=== PATIENT | female | born 1990 | race Caucasian/White ===

== ENCOUNTER 2017-12-08 09:34 | Emergency (ER) | payer SELFPAY ==
[2017-12-08] MEDS ORDERED: NA CHLORIDE 0.9% 1,000 ML ONE (10:24)
[2017-12-08] MEDS ORDERED: ONDANSETRON 4 MG/2 ML VIAL ONE (10:24)
[2017-12-08 10:36] LABS: Urine Blood NEGATIVE (NEG); Urine Glucose NEGATIVE (NEG); Urine Protein TRACE (NEG); Urine Specific Gravity >1.030 (1.005-1.030); Urine pH 5.5 (5.0-7.0)
[2017-12-08 10:39] LABS: ALT/SGPT 27 U/L (12-78); AST/SGOT 18 U/L (15-37); Albumin 3.6 g/dL (3.4-5.0); Alkaline Phosphatase 114 U/L (45-117); Amylase Level 48 U/L (25-115); BUN Blood Urea Nitrogen 9 mg/dL (7-18); Bicarbonate 28 mmol/L (21-32); Bilirubin Direct < 0.1 mg/dL (0-0.2); Bilirubin Total 0.3 mg/dL (0.2-1.0); Glucose Level 102 mg/dL (74-106); Lipase 162 U/L (73-393); Potassium 3.7 mmol/L (3.5-5.1); Protein, Total 8.1 g/dL (6.4-8.2); Sodium Level 136 mmol/L (136-145)
[2017-12-08 10:43] LABS: Absolute Lymphocytes (CBC) 2.5 K/uL (0.7-4.9); Absolute Monocytes 0.4 K/uL (0.1-1.3); Absolute Neutrophil 6.4 K/uL (1.8-8.0); Basophils % 0.1 % (0-1.3); Hematocrit 46.5 % (36.0-45.0); Lymphocytes % 22.5 % (15.3-44.8); MCH 29.8 pg (27.0-35.0); MCV 90.3 fL (80-100); MPV 7.9 fL (7.6-11.3); Monocytes % 3.8 % (3.3-12.3); RBC Red Blood Cell Count 5.15 M/uL (3.86-4.86)
--- NOTE | 2017-12-08 11:20 | RAD REPORT ---
EXAM DESCRIPTION: CT - Abdomen Pelvis W Contrast - 12/08/2017 11:08 am CLINICAL HISTORY: Abdominal pain, nausea and vomiting, history of hepatitis COMPARISON: None. TECHNIQUE: Biphasic, helical CT imaging of the abdomen and pelvis was performed following 100 ml non -ionic IV contrast. No oral contrast was given. All CT scans are performed using dose optimization technique as appropriate and may include automated exposure control or mA/KV adjustment according to patient size. FINDINGS: No suspicious findings in the lung bases. The liver, spleen, and pancreas show no suspicious findings. Gallbladder and biliary tree are also wi thout suspicious finding. Gallstones and sludge can be occult on CT imaging. Symmetric renal function is seen with no hydronephrosis or suspicious renal mass. No pyelonephritis. No adrenal abnormalities. Urinary bladder is contracted limiting assessment. Uterus and ovaries show no suspicious findings. Small cyst noted in the right ovary. No gastric dilatation or gastric wall thickening. Stomach is mostly decompressed. Multiple nondilated fluid-filled small bowel loops are present. San are mildly prominent. San throughout the colon a re mildly prominent. No one focal area of large or small bowel mass or luminal narrowing. Fluid is p resent in the appendix. The appendix does not appear to be dilated and a primary appendix process is not suspected. No free air, free fluid or inflammatory stranding. No hernia, mass or bulky lymphadenopathy. No suspicious bony findings. IMPRESSION: No obstruction, free air or surgically emergent finding. Nonspecific enteritis pattern involving small bowel and colon. Acute appendicitis is not suspected.
--- NOTE | 2017-12-08 11:26 | ER ---
Nurse's Notes [facility] Name: Mya Newman Age: 27 yrs Sex: Female : 1990 Arrival Date: 12/08/2017 Time: 09:36 Bed 15 Private MD: None, None Diagnosis: Diarrhea, unspecified;Generalized abdominal pain;Nausea and vomiting Presentation: 12/08 09:51 Presenting complaint: Patient states: Reports N/V/D for 2 weeks. Transition of care: aj patient was not received from another setting of care. Onset of symptoms was December 08, 2017. Risk Assessment: Do you want to hurt yourself or someone else? Patient reports no desire to harm self or others. Initial Sepsis Screen: Does the patient meet any 2 criteria? HR > 90 bpm. No. Patient's initial sepsis screen is negative. Does the patient have a suspected source of infection? No. Patient's initial sepsis screen is negative. Care prior to arrival: None. 09:51 Method Of Arrival: Ambulatory 09:51 Acuity: BECKI 3 Triage Assessment: 09:52 General: Appears in no apparent distress. uncomfortable, Behavior is calm, cooperative, aj appropriate for age. Pain: Complains of pain in left upper quadrant. Neuro: Level of Consciousness is awake, alert, obeys commands, Oriented to person, place, time, situation, Appropriate for age. Respiratory: Airway is patent Respiratory effort is even, unlabored, Respiratory pattern is regular, symmetrical. GI: Abdomen is flat, Reports upper abdominal pain, diarrhea, nausea, vomiting. Derm: Skin is intact, is healthy with good turgor, Skin is pink, warm \T\ dry. normal. 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 - Social history:: Smoking status: Patient uses tobacco products, smokes one pack cigarettes per day. Patient uses IV drugs, amphetamines. - Ebola Screening: : Patient negative for fever greater than or equal to 101.5 degrees Fahrenheit, and additional compatible Ebola Virus Disease symptoms Patient denies exposure to infectious person Patient denies travel to an Ebola-affected area in the 21 days before illness onset No symptoms or risks identified at this time. Screenin:17 Abuse screen: Denies threats or abuse. Nutritional screening: No deficits noted. la1 Tuberculosis screening: No symptoms or risk factors identified. Fall Risk None identified. Assessment: 10:17 General: Appears uncomfortable, Behavior is calm, cooperative. Pain: Complains of pain la1 in left upper quadrant, right lower quadrant and left lower quadrant. Neuro: Level of Consciousness is awake, alert, obeys commands, Oriented to person, place, time, situation. Cardiovascular: Patient's skin is warm and dry. Respiratory: Airway is patent Respiratory effort is even, unlabored, Respiratory pattern is regular, symmetrical, Breath sounds are clear bilaterally. GI: Abdomen is round non-distended, Bowel sounds present X 4 quads. Abd is soft and non tender X 4 quads. Reports diarrhea, nausea, vomiting. : No signs and/or symptoms were reported regarding the genitourinary system. Vital Signs: 09:52 BP 134 / 109; Pulse 127; Resp 20; Temp 97.9; Pulse Ox 99% on R/A; Weight 58.97 kg; aj Height 5 ft. 2 in. (157.48 cm) (R); 11:15 BP 123 / 83; Pulse 105; Resp 17; Pulse Ox 100% on R/A; la1 09:52 Body Mass Index 23.78 (58.97 kg, 157.48 cm) aj ED Course: 09:36 Patient arrived in ED. mr 09:37 None, None is Private Physician. mr 09:49 Roxie Brice FNP-C is PHCP. kb 09:49 Demario Floyd MD is Attending Physician. kb 09:50 Adin Doe, KRISTOPHER is Primary Nurse. la1 09:51 Triage completed. aj 09:52 Arm band placed on left wrist. Patient placed in an exam room. aj 10:18 Bed in low position. Call light in reach. la1 10:18 No provider procedures requiring assistance completed. Inserted Accessed peripheral la1 vein via ultrasound, utilizing dynamic ultrasound technique using 18G Sureflo IV catheter. 11:[address] via wheelchair. cw1 11:06 CT completed. Patient moved back from CT. cw1 11:08 CT Abd/Pelvis - W/Contrast In Process Unspecified. EDMS 11:26 IV discontinued, intact, bleeding controlled, No redness/swelling at site. Pressure la1 dressing applied. Administered Medications: 10:23 Drug: Zofran 4 mg Route: IVP; Site: right wrist; la1 10:44 Follow up: Response: No adverse reaction; Nausea is decreased la1 10:24 Drug: NS 0.9% 1000 ml Route: IV; Rate: 1000 ml; Site: right wrist; la1 10:54 Follow up: IV Status: Completed infusion la1 Outcome: 11:25 Discharge ordered by . gretchen 11:32 Discharged to home ambulatory. la1 11:32 Condition: stable 11:32 Discharge instructions given to patient, Instructed on discharge instructions, follow up and referral plans. medication usage, Demonstrated understanding of instructions, follow-up care, medications, Prescriptions given X 2. 11:32 Patient left the ED. la1 Signatures: Dispatcher [employer] EDMS Roxie Brice, HOT DIE PRESS OPERATOR-C HOT DIE PRESS OPERATOR-Taylor Haynes, RN Carmen Norwood, Lilian cw1 Adin Doe, KRISTOPHER RN la1
--- NOTE | 2017-12-08 11:26 | EDPHYS ---
Physician Documentation [facility] Name: Mya Newman Age: 27 yrs Sex: Female : 1990 Arrival Date: 12/08/2017 Time: 09:36 Bed 15 Private MD: None, None ED Physician Demario Floyd HPI: 12/08 09:59 This 27 yrs old Female presents to ER via Ambulatory with complaints of kb Abdominal Pain. 09:59 The patient presents with abdominal pain that is diffuse. Onset: The symptoms/episode kb began/occurred 2 week(s) ago. The symptoms do not radiate. Associated signs and symptoms: Pertinent positives: nausea, vomiting, and diarrhea. The symptoms are described as constant. Modifying factors: The symptoms are alleviated by nothing, the symptoms are aggravated by pressure. Severity of pain: At its worst the pain was moderate in the emergency department the pain is unchanged. The patient has not experienced similar symptoms in the past. The patient has not recently seen a physician. Pt reports n/v/d and abd pain for 2 weeks. States pain is more on the left side. STates "My boyfriend made me worried that I have hep A or B, we both have C.". 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 - Social history:: Smoking status: Patient uses tobacco products, smokes one pack cigarettes per day. Patient uses IV drugs, amphetamines. - Ebola Screening: : Patient negative for fever greater than or equal to 101.5 degrees Fahrenheit, and additional compatible Ebola Virus Disease symptoms Patient denies exposure to infectious person Patient denies travel to an Ebola-affected area in the 21 days before illness onset No symptoms or risks identified at this time. ROS: 09:59 Constitutional: Negative for fever, chills, and weight loss, Cardiovascular: Negative kb for chest pain, palpitations, and edema, Respiratory: Negative for shortness of breath, cough, wheezing, and pleuritic chest pain, Back: Negative for injury and pain, : Negative for injury, bleeding, discharge, and swelling, MS/Extremity: Negative for injury and deformity, Skin: Negative for injury, rash, and discoloration, Neuro: Negative for headache, weakness, numbness, tingling, and seizure. 09:59 Abdomen/GI: Positive for abdominal pain, nausea, vomiting, and diarrhea, Negative for constipation, abdominal cramps, abdominal distension, anorexia. Exam: 09:59 Constitutional: This is a well developed, well nourished patient who is awake, alert, kb and in no acute distress. Head/Face: Normocephalic, atraumatic. Chest/axilla: Normal chest wall appearance and motion. Nontender with no deformity. No lesions are appreciated. Cardiovascular: Regular rate and rhythm with a normal S1 and S2. No gallops, murmurs, or rubs. Normal PMI, no JVD. No pulse deficits. Respiratory: Lungs have equal breath sounds bilaterally, clear to auscultation and percussion. No rales, rhonchi or wheezes noted. No increased work of breathing, no retractions or nasal flaring. Skin: Warm, dry with normal turgor. Normal color with no rashes, no lesions, and no evidence of cellulitis. MS/ Extremity: Pulses equal, no cyanosis. Neurovascular intact. Full, normal range of motion. Neuro: Awake and alert, GCS 15, oriented to person, place, time, and situation. Cranial nerves II-XII grossly intact. Motor strength 5/5 in all extremities. Sensory grossly intact. Cerebellar exam normal. Normal gait. 09:59 Abdomen/GI: Inspection: abdomen appears normal, Bowel sounds: normal, in all quadrants, Palpation: soft, in all quadrants, moderate abdominal tenderness, in all quadrants. Vital Signs: 09:52 BP 134 / 109; Pulse 127; Resp 20; Temp 97.9; Pulse Ox 99% on R/A; Weight 58.97 kg; aj Height 5 ft. 2 in. (157.48 cm) (R); 11:15 BP 123 / 83; Pulse 105; Resp 17; Pulse Ox 100% on R/A; la1 09:52 Body Mass Index 23.78 (58.97 kg, 157.48 cm) aj MDM: 09:49 Patient medically screened. kb 10:01 Data reviewed: vital signs, nurses notes. Data interpreted: Pulse oximetry: on room air kb is 99 %. Interpretation: normal. 11:24 Counseling: I had a detailed discussion with the patient and/or guardian regarding: the kb historical points, exam findings, and any diagnostic results supporting the discharge/admit diagnosis, lab results, radiology results, the need for outpatient follow up, a family practitioner, to return to the emergency department if symptoms worsen or persist or if there are any questions or concerns that arise at home. 12/08 09:52 Order name: Amylase, Serum; Complete Time: 10:40 kb 12/08 09:52 Order name: Basic Metabolic Panel; Complete Time: 10:40 kb 12/08 09:52 Order name: CBC with Diff kb 12/08 09:52 Order name: Hepatic Function; Complete Time: 10:40 kb 12/08 09:52 Order name: Lipase; Complete Time: 10:40 kb 12/08 10:22 Order name: Urine Dipstick--Ancillary (enter results); Complete Time: 10:40 bd 12/08 09:52 Order name: Urine Test (obtain specimen); Complete Time: 10:16 kb 12/08 09:52 Order name: IV Saline Lock; Complete Time: 10:16 kb 12/08 09:52 Order name: Labs collected and sent; Complete Time: 10:16 kb 12/08 10:22 Order name: Urine --Ancillary (enter results); Complete Time: 10:40 bd 12/08 10:40 Order name: CT Abd/Pelvis - W/Contrast; Complete Time: 11:24 kb 12/08 10:45 Order name: Manual Differential EDMS 12/08 09:52 Order name: Urine Dipstick-Ancillary (obtain specimen); Complete Time: 10:16 kb Administered Medications: 10:23 Drug: Zofran 4 mg Route: IVP; Site: right wrist; la1 10:44 Follow up: Response: No adverse reaction; Nausea is decreased la1 10:24 Drug: NS 0.9% 1000 ml Route: IV; Rate: 1000 ml; Site: right wrist; la1 10:54 Follow up: IV Status: Completed infusion la1 Disposition: 12/09 09:15 Co-signature as Attending Physician, Demario Floyd MD I agree with the assessment and gary plan of care. Disposition: 12/08/17 11:25 Discharged to Home. Impression: Diarrhea, unspecified, Generalized abdominal pain, Nausea and vomiting. - Condition is Stable. - Discharge Instructions: Food Choices to Help Relieve Diarrhea, Adult, Viral Gastroenteritis, Adult, [id number], Nausea and Vomiting, Adult, [id number]. - Prescriptions for Bentyl 20 mg Oral Tablet - take 1 tablet by ORAL route every 6 hours As needed; 20 tablet. Zofran 4 mg Oral Tablet - take 1 tablet by ORAL route every 6 hours As needed; 20 tablet. - Medication Reconciliation Form, Thank You Letter, Antibiotic Education, Prescription Opioid Use form. - Follow up: Emergency Department; When: As needed; Reason: Worsening of condition. Follow up: Private Physician; When: 2 - 3 days; Reason: Recheck today's complaints, Continuance of care, Re-evaluation by your physician. Signatures: Dispatcher [employer] EDMS Roxie Brice, MICAELA ROLDAN-Taylor Haynes RN RN Demario Caputo MD MD cha Attema, Lee, RN RN la1 Corrections: (The following items were deleted from the chart) 12/08 11:32 11:25 12/08/2017 11:25 Discharged to Home. Impression: Diarrhea, unspecified; la1 Generalized abdominal pain; Nausea and vomiting. Condition is Stable. Forms are Medication Reconciliation Form, Thank You Letter, Antibiotic Education, Prescription Opioid Use. Follow up: Emergency Department; When: As needed; Reason: Worsening of condition. Follow up: Private Physician; When: 2 - 3 days; Reason: Recheck today's complaints, Continuance of care, Re-evaluation by your physician. kb
[2017-12-08 11:52] LABS: Blood Morphology Comment NOT SEEN (NOT SEEN); Platelet Estimate ADEQ
== END 2017-12-08 11:32 | disposition home or self-care (01) ==
LOC: ER 09:34
DX: R10.84 Generalized abdominal pain (principal); R19.7 Diarrhea, unspecified; R11.2 Nausea with vomiting, unspecified; Z88.6 Allergy status to analgesic agent; Z88.1 Allergy status to other antibiotic agents; B19.20 Unspecified viral hepatitis C without hepatic coma; F17.210 Nicotine dependence, cigarettes, uncomplicated
CPT/HCPCS: 36415; 74177; 80048; 80076; 81003; 81025; 82150; 83690; 85025; 96374; 99284; J2405; J7030; Q9967

== ENCOUNTER 2018-09-28 07:22 | Emergency (ER) | payer SELFPAY ==
--- NOTE | 2018-09-28 08:00 | ER ---
[facility] Name: Mya Newman Age: 28 yrs Sex: Female : 1990 Arrival Date: 09/28/2018 Time: 07:23 Bed 16 Private MD: Diagnosis: Pain in left hand Presentation: 09/28 07:23 Presenting complaint: EMS states: pt reports shooting up meth 2 days ago and now she is tw2 having pain but doesn't know if she fell or what, [place], allergic to amoxicillin and tylenol, vs stable. Transition of care: patient was not received from another setting of care. Onset of symptoms was September 28, 2018. Risk Assessment: Do you want to hurt yourself or someone else? Patient reports no desire to harm self or others. Initial Sepsis Screen: Does the patient meet any 2 criteria? No. Patient's initial sepsis screen is negative. Does the patient have a suspected source of infection? No. Patient's initial sepsis screen is negative. Care prior to arrival: None. 07:23 Method Of Arrival: EMS: [facility] tw2 07:23 Acuity: BECKI 4 tw2 Triage Assessment: 07:25 General: Appears in no apparent distress. unkempt, Behavior is calm, cooperative, tw2 appropriate for age. Pain: Complains of pain in left hand. EENT: No signs and/or symptoms were reported regarding the EENT system. Neuro: Level of Consciousness is awake, alert, obeys commands, Oriented to person, place, time, situation. Cardiovascular: Patient's skin is warm and dry. Respiratory: Airway is patent Respiratory effort is even, unlabored, Respiratory pattern is regular, symmetrical. GI: No signs and/or symptoms were reported involving the gastrointestinal system. : No signs and/or symptoms were reported regarding the genitourinary system. Derm: No signs and/or symptoms reported regarding the dermatologic system. Musculoskeletal: Circulation, motion, and sensation intact. Range of motion: intact in all extremities. 07:26 General: Appears in no apparent distress. comfortable, Behavior is calm, cooperative. em Pain: Complains of pain in left hand. 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 tw2 Historical: - Allergies: 07:26 Amoxicillin; em 07:26 Tylenol; em - Home Meds: 07:26 None [Active]; em - PMHx: 07:26 Hepatitis; Anemia; em - PSHx: 07:26 Tonsillectomy; em - Immunization history:: Last tetanus immunization: up to date. - Social history:: Smoking status: Patient uses tobacco products, smokes one-half pack cigarettes per day. - Ebola Screening: : Patient negative for fever greater than or equal to 101.5 degrees Fahrenheit, and additional compatible Ebola Virus Disease symptoms Patient denies exposure to infectious person Patient denies travel to an Ebola-affected area in the 21 days before illness onset No symptoms or risks identified at this time. Screenin: Abuse screen: Denies threats or abuse. Nutritional screening: No deficits noted. tw2 Tuberculosis screening: No symptoms or risk factors identified. Fall Risk None identified. Assessment: :27 Reassessment: see triage assessment. tw2 08:08 Reassessment: Patient appears in no apparent distress at this time. No changes from tw2 previously documented assessment. Patient and/or family updated on plan of care and expected duration. Pain level reassessed. Vital Signs: 07:26 BP 120 / 72; Pulse 105; Resp 18; Temp 98.7; Pulse Ox 100% on R/A; Weight 56.7 kg; em Height 5 ft. 2 in. (157.48 cm); Pain 8/10; 07:26 Body Mass Index 22.86 (56.70 kg, 157.48 cm) em ED Course: 07:23 Patient arrived in ED. tw2 07:23 [facility]C [facility] kb 07:23 Diego Ambriz MD is Attending Physician. kb 07:23 Bed in low position. Call light in reach. tw2 07:25 Triage completed. tw2 07:25 Arm band placed on. tw2 07:49 Hand Left 3 View XRAY In Process Unspecified. EDMS 08:06 Tia Teran, KRISTOPHER is Primary Nurse. tw2 08:07 No provider procedures requiring assistance completed. Patient did not have IV access tw2 during this emergency room visit. Dami wrap to left wrist Sling applied to left arm. Administered Medications: No medications were administered Outcome: 07:59 Discharge ordered by . gretchen 08:07 Discharged to home ambulatory. tw2 08:07 Condition: stable 08:07 Discharge instructions given to patient, Instructed on discharge instructions, follow up and referral plans. dami wrap and CMS checks Demonstrated understanding of instructions, follow-up care, dami wrap and cms checks, CMS in tact 08:08 Patient left the ED. tw2 Signatures: Dispatcher [employer] Roxie Haider, YULI-C MELT HOUSE SUPERVISOR-tEienne Hogue, RN OTOLARYNGOLOGY RN OTOLARYNGOLOGY Tia Vogt, RN RN tw2
--- NOTE | 2018-09-28 08:00 | EDPHYS ---
Physician Documentation [facility] Name: Mya Newman Age: 28 yrs Sex: Female : 1990 Arrival Date: 09/28/2018 Time: 07:23 Bed 16 Private MD: ED Physician Diego Ambriz HPI: 09/28 07:36 This 28 yrs old Female presents to ER via EMS with complaints of Wrist Pain. kb 07:36 The patient or guardian reports pain, tenderness. The complaints affect the left hand kb diffusely. Context: resulted from an unknown cause. Onset: The symptoms/episode began/occurred this morning. Modifying factors: The symptoms are alleviated by nothing, the symptoms are aggravated by movement. Associated signs and symptoms: The patient has no apparent associated signs or symptoms. Severity of symptoms: At their worst the symptoms were mild, in the emergency department the symptoms are unchanged. The patient has not experienced similar symptoms in the past. The patient has not recently seen a physician. Pt states she woke up with left hand pain. "I know it's fractured because I've had fractures before and it feels the same.". 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 tw2 Historical: - Allergies: 07:26 Amoxicillin; em 07:26 Tylenol; em - Home Meds: 07:26 None [Active]; em - PMHx: 07:26 Hepatitis; Anemia; em - PSHx: 07:26 Tonsillectomy; em - Immunization history:: Last tetanus immunization: up to date. - Social history:: Smoking status: Patient uses tobacco products, smokes one-half pack cigarettes per day. - Ebola Screening: : Patient negative for fever greater than or equal to 101.5 degrees Fahrenheit, and additional compatible Ebola Virus Disease symptoms Patient denies exposure to infectious person Patient denies travel to an Ebola-affected area in the 21 days before illness onset No symptoms or risks identified at this time. ROS: 07:33 Constitutional: Negative for fever, chills, and weight loss, Cardiovascular: Negative kb for chest pain, palpitations, and edema, Respiratory: Negative for shortness of breath, cough, wheezing, and pleuritic chest pain, Abdomen/GI: Negative for abdominal pain, nausea, vomiting, diarrhea, and constipation, Skin: Negative for injury, rash, and discoloration, Neuro: Negative for headache, weakness, numbness, tingling, and seizure. 07:33 MS/extremity: Positive for pain. Exam: 07:34 Constitutional: This is a well developed, well nourished patient who is awake, alert, kb and in no acute distress. Head/Face: Normocephalic, atraumatic. Chest/axilla: Normal chest wall appearance and motion. Nontender with no deformity. No lesions are appreciated. Cardiovascular: Regular rate and rhythm with a normal S1 and S2. No gallops, murmurs, or rubs. Normal PMI, no JVD. No pulse deficits. Respiratory: Lungs have equal breath sounds bilaterally, clear to auscultation and percussion. No rales, rhonchi or wheezes noted. No increased work of breathing, no retractions or nasal flaring. Abdomen/GI: Soft, non-tender, with normal bowel sounds. No distension or tympany. No guarding or rebound. No evidence of tenderness throughout. Skin: Warm, dry with normal turgor. Normal color with no rashes, no lesions, and no evidence of cellulitis. Neuro: Awake and alert, GCS 15, oriented to person, place, time, and situation. Cranial nerves II-XII grossly intact. Motor strength 5/5 in all extremities. Sensory grossly intact. Cerebellar exam normal. Normal gait. 07:34 Musculoskeletal/extremity: Extremities: grossly normal except: noted in the left hand: pain, tenderness, ROM: intact in all extremities, Circulation is intact in all extremities. Sensation intact. Vital Signs: 07:26 BP 120 / 72; Pulse 105; Resp 18; Temp 98.7; Pulse Ox 100% on R/A; Weight 56.7 kg; em Height 5 ft. 2 in. (157.48 cm); Pain 8/10; 07:26 Body Mass Index 22.86 (56.70 kg, 157.48 cm) em MDM: 07:23 Patient medically screened. kb 07:33 Data reviewed: vital signs, nurses notes. Data interpreted: Pulse oximetry: on room air kb is 100 %. Interpretation: normal. Counseling: I had a detailed discussion with the patient and/or guardian regarding: the historical points, exam findings, and any diagnostic results supporting the discharge/admit diagnosis, radiology results, the need for outpatient follow up, a family practitioner, to return to the emergency department if symptoms worsen or persist or if there are any questions or concerns that arise at home. 07:59 Test interpretation: by ED physician or midlevel provider: plain radiologic studies, kb negative for fracture. 09/28 07:23 Order name: Hand Left 3 View XRAY kb 09/28 08:01 Order name: Dami Wrap; Complete Time: 08:06 kb 09/28 08:01 Order name: Sling; Complete Time: 08:06 kb Administered Medications: No medications were administered Disposition: 08:22 Co-signature as Attending Physician, Diego Ambriz MD. rn Disposition: 09/28/18 07:59 Discharged to Home. Impression: Pain in left hand. - Condition is Stable. - Discharge Instructions: Musculoskeletal Pain. - Medication Reconciliation Form, Thank You Letter, Antibiotic Education, Prescription Opioid Use form. - Follow up: Emergency Department; When: As needed; Reason: Worsening of condition. Follow up: Private Physician; When: 2 - 3 days; Reason: Recheck today's complaints, Continuance of care, Re-evaluation by your physician. Signatures: Dispatcher [employer] EDDE Roxie Brice, DELPHI DEVELOPER-C DELPHI DEVELOPER-Ckb Etienne Woods, ENVIRONMENTAL HEALTH MANAGER ENVIRONMENTAL HEALTH MANAGER em Diego Ambriz MD MD rn Wise, Tara, RN RN tw2 Corrections: (The following items were deleted from the chart) 08:08 07:59 09/28/2018 07:59 Discharged to Home. Impression: Pain in left hand. Condition is tw2 Stable. Forms are Medication Reconciliation Form, Thank You Letter, Antibiotic Education, Prescription Opioid Use. Follow up: Emergency Department; When: As needed; Reason: Worsening of condition. Follow up: Private Physician; When: 2 - 3 days; Reason: Recheck today's complaints, Continuance of care, Re-evaluation by your physician. kb
--- NOTE | 2018-09-28 10:04 | RAD REPORT ---
EXAM DESCRIPTION: RAD - Hand Left 3 View - 09/28/2018 7:47 am CLINICAL HISTORY: Left hand pain, trauma COMPARISON: None. FINDINGS: No fracture, dislocation or periosteal reaction noted. No foreign body or other soft tissu e abnormality. IMPRESSION: Negative left hand examination.
== END 2018-09-28 08:08 | disposition home or self-care (01) ==
LOC: ER 07:22
DX: M79.642 Pain in left hand (principal); F17.210 Nicotine dependence, cigarettes, uncomplicated; Z88.1 Allergy status to other antibiotic agents; Z88.6 Allergy status to analgesic agent
CPT/HCPCS: 99283

== ENCOUNTER 2018-10-01 03:22 | Emergency (ER) | payer SELFPAY ==
[2018-10-01] MEDS ORDERED: MEPERIDINE HCL 25 MG/0.5 ML ONE (04:19)
[2018-10-01] MEDS ORDERED: ONDANSETRON 4 MG/2 ML VIAL ONE (04:19)
[2018-10-01] MEDS ORDERED: NA CHLORIDE 0.9% 1,000 ML ONE ×2 (04:20→06:24)
[2018-10-01 04:30] LABS: Absolute Lymphocytes (CBC) 0.6 K/uL (0.7-4.9); Absolute Monocytes 0.4 K/uL (0.1-1.3); Absolute Neutrophil 4.4 K/uL (1.8-8.0); Basophils % 0.1 % (0-1.3); Hematocrit 33.2 % (36.0-45.0); Lymphocytes % 11.2 % (15.3-44.8); MPV 8.4 fL (7.6-11.3); Monocytes % 6.6 % (3.3-12.3); RBC Red Blood Cell Count 3.87 M/uL (3.86-4.86)
[2018-10-01 04:43] LABS: Albumin 3.2 g/dL (3.4-5.0); Bilirubin Direct 0.1 mg/dL (0-0.2); Bilirubin Total 0.5 mg/dL (0.2-1.0); Potassium 3.1 mmol/L (3.5-5.1); Protein, Total 7.7 g/dL (6.4-8.2)
[2018-10-01] MEDS ORDERED: POTASSIUM CL SA 10 MEQ TAB PO ONE (05:24)
[2018-10-01] MEDS ORDERED: NA CHLORIDE 0.9% 250 ML ONE (06:33)
[2018-10-01] MEDS ORDERED: VANCOMYCIN 1 GM/VIAL ONE (06:33)
--- NOTE | 2018-10-01 08:24 | RAD REPORT ---
EXAM DESCRIPTION: CT - Chest For Pe Angio - 10/01/2018 7:43 am CLINICAL HISTORY: Chest pain COMPARISON: None. TECHNIQUE: Dynamically enhanced axial 3 mm thick images of the chest were obtained during administra tion of <100> mL Isovue 370 IV contrast. Coronal and oblique reconstruction images were generated and reviewed. Exam utilizes a protocol for optimal evaluation of pulmonary arterial tree. Maximum intensity projections 3D imaging was utilized All CT scans are performed using dose optimization technique as appropriate and may include automated exposure control or mA/KV adjustment according to patient size. FINDINGS: A pulmonary embolus is not seen. A thoracic aortic aneurysm is not noted. A pleural effusion is not seen. A pericardial effusion is not seen. Several patchy alveolar opacities are scattered within the lungs measuring up to 2 centimeters. No ca vitation noted. Mild mediastinal lymphadenopathy 15 millimeter left thyroid nodule The visualized spleen is enlarged IMPRESSION: Negative for a pulmonary embolism. Bilateral patchy alveolar opacities most likely representing infection or inflammation. Follow-up CT chest in a couple of weeks recommended to assess stability/resolution Mild mediastinal lymphadenopathy most likely reactive in nature. This can be monitored on the follow- up exam 15 millimeter left thyroid nodule. Nonemergent ultrasound recommended
--- NOTE | 2018-10-01 08:52 | ER ---
Nurse's Notes [facility] Name: Mya Newman Age: 28 yrs Sex: Female : 1990 Arrival Date: 10/01/2018 Time: 03:25 Bed 7 Private MD: Diagnosis: Unspecified abdominal pain;Vomiting;Diarrhea, unspecified;Dehydration;Hypokalemia Presentation: 10/01 03:25 Presenting complaint: EMS states: Reported pt has been having right upper abdominal ea pain for the past three days with nausea and vomiting. Transition of care: patient was not received from another setting of care. Onset of symptoms was October 01, 2018. Risk Assessment: Do you want to hurt yourself or someone else? Patient reports no desire to harm self or others. Initial Sepsis Screen: Does the patient meet any 2 criteria? HR > 90 bpm. Does the patient have a suspected source of infection? No. Patient's initial sepsis screen is negative. Care prior to arrival: None. 03:25 Method Of Arrival: EMS: [facility] ea 03:25 Acuity: BECKI 3 ea Triage Assessment: 03:30 General: Appears uncomfortable, Behavior is calm, cooperative, appropriate for age. ea Pain: Complains of pain in right upper quadrant. GI: Reports upper abdominal pain, nausea, vomiting. 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 - Social history:: Smoking status: Patient uses tobacco products, smokes one-half pack cigarettes per day. - Ebola Screening: : No symptoms or risks identified at this time. - Family history:: not pertinent. - Hospitalizations: : No recent hospitalization is reported. Screenin:27 Abuse screen: Denies threats or abuse. Nutritional screening: No deficits noted. ea Tuberculosis screening: No symptoms or risk factors identified. Fall Risk None identified. Assessment: 03:30 General: Appears uncomfortable, Behavior is calm, cooperative, appropriate for age. ea Pain: Complains of pain in right upper quadrant. Neuro: Level of Consciousness is awake, alert, obeys commands, Oriented to person, place, time, situation. Cardiovascular: Patient's skin is warm and dry. Respiratory: Airway is patent Respiratory effort is even, unlabored, Respiratory pattern is regular, symmetrical. Derm: Skin is pink, warm \T\ dry. 04:00 Reassessment: Patient and/or family updated on plan of care and expected duration. Pain ea level reassessed. Patient is alert, oriented x 3, equal unlabored respirations, skin warm/dry/pink. 05:52 Reassessment: Patient and/or family updated on plan of care and expected duration. Pain ea level reassessed. Patient is alert, oriented x 3, equal unlabored respirations, skin warm/dry/pink. Awaiting on CT results. 06:15 Reassessment: Patient and/or family updated on plan of care and expected duration. Pain ea level reassessed. Patient is alert, oriented x 3, equal unlabored respirations, skin warm/dry/pink. 07:00 Reassessment: RECD REPORT FROM MATILDE SUMMERS. 28YO WF P/W EPIGASTRIC PAIN. CT CHEST PENDING, bp IVF INFUSING. 07:00 GI: Bowel sounds present X 4 quads. Abd is soft X 4 quads. bp 07:05 Reassessment: LAB AND ER STAFF PREVIOUSLY UNABLE TO OBTAIN LAB SPECIMENS. PT NOW bp DECLINING FURTHER ATTEMPTS, NOTIFIED. 07:29 Reassessment: PT TO CT. bp 08:33 Reassessment: ALL CURRENT ORDERS COMPLETED, CT RESULTS PENDING. PT AMBULATING WITH bp STEADY GAIT. 09:16 Reassessment: PT D/C HOME AMBULATORY, DX WITH DEHYDRATION AND HYPOKALEMIA. bp Vital Signs: 03:28 BP 121 / 86; Pulse 127; Resp 20; Temp 98.1; Pulse Ox 96% on R/A; Weight 56.7 kg; Height ea 5 ft. 2 in. (157.48 cm); 04:00 Pulse 115; Resp 18; Pulse Ox 98% ; ea 05:07 BP 97 / 61; Pulse 114; Resp 18; Pulse Ox 97% ; ea 06:00 BP 108 / 72; Pulse 115; Resp 18; Pulse Ox 100% ; ea 07:15 BP 102 / 73; Pulse 116; Resp 18; Pulse Ox 100% ; bp 09:17 BP 106 / 75; Pulse 100; Resp 18; Temp 98; Pulse Ox 100% on R/A; bp 03:28 Body Mass Index 22.86 (56.70 kg, 157.48 cm) ea ED Course: 03:24 Diego Ambriz MD is Attending Physician. rn 03:25 Patient arrived in ED. am2 03:25 Matilde Gore, RN is Primary Nurse. ea 03:27 Triage completed. ea 03:27 Arm band placed on right wrist. Patient placed in an exam room, on a stretcher, on ea pulse oximetry. 03:28 Patient has correct armband on for positive identification. Bed in low position. Call ea light in reach. Side rails up X2. 04:00 Initial lab(s) drawn, by ED staff, sent to lab. bb 04:08 Accessed peripheral vein via ultrasound, utilizing dynamic ultrasound technique using ea per hospital protocol. 20 G . 04:26 Radiology exam delayed due to lab results not completed at this time. (BUN/Creatinine) kw1 test not completed at this time. 04:30 IV discontinued, intact, bleeding controlled, No redness/swelling at site. Pressure ea dressing applied, 20 G to left upper arm. 04:35 Inserted saline lock: 20 gauge in right antecubital area, using aseptic technique. ea ,using aseptic technique. per Dr. Ambriz. 05:17 CT Abd/Pelvis - IV Contrast Only In Process Unspecified. EDMS 07:11 Report given to Manjula SUMMERS. ea 07:16 Attending Physician role handed off by Diego Ambriz MD ps1 07:16 Andres Lamb MD is Attending Physician. ps1 07:44 CT Chest For PE Angio In Process Unspecified. EDMS 09:17 No provider procedures requiring assistance completed. IV discontinued, intact, bp bleeding controlled, No redness/swelling at site. Pressure dressing applied. Administered Medications: 04:10 Drug: NS 0.9% 1000 ml Route: IV; Rate: 1000 ml; Site: left antecubital; lp1 04:32 Follow up: IV SiteChange: right antecubital; IV SiteChange Reason: Infiltration lp1 04:10 Drug: Zofran 4 mg Route: IVP; Site: left antecubital; lp1 05:10 Follow up: Response: No adverse reaction ea 04:34 Drug: Demerol 25 mg Route: IVP; Site: right antecubital; ea 05:10 Follow up: Response: No adverse reaction; Pain is decreased ea 05:09 Drug: Potassium Chloride 40 mEq Route: PO; ea 08:15 Follow up: Response: No adverse reaction bp 06:13 Drug: NS 0.9% 1000 ml Route: IV; Rate: 1 bolus; Site: right antecubital; ea Outcome: 08:51 Discharge ordered by MD. ps1 09:18 Discharged to home ambulatory, with family. bp 09:18 Condition: stable 09:18 Discharge instructions given to patient, Instructed on discharge instructions, follow up and referral plans. medication usage, Demonstrated understanding of instructions, follow-up care, medications, Prescriptions given X 3. 09:20 Patient left the ED. bp Signatures: Dispatcher [employer] EDMS Daylin Hennessy RN RN Diego Escalona MD MD rn Pena, Laura, RN RN lp1 Taylor Hernandez Elena, RN RN ea Peltier, Brian, RN RN Andres Field MD MD [facility] Maddy Griffin 1
--- NOTE | 2018-10-01 08:52 | EDPHYS ---
Physician Documentation [facility] Name: Mya Newman Age: 28 yrs Sex: Female : 1990 Arrival Date: 10/01/2018 Time: 03:25 Bed 7 Private MD: ED Physician Andres Lamb HPI: 10/01 03:43 This 28 yrs old Female presents to ER via EMS with complaints of Abdominal rn Pain - right side. 03:43 The patient presents with abdominal pain in the right upper quadrant. Onset: The rn symptoms/episode began/occurred 3 day(s) ago. The symptoms do not radiate. Associated signs and symptoms: Pertinent positives: nausea and vomiting, diarrhea, Pertinent negatives: blood in stools, fever, shortness of breath, vaginal discharge. The symptoms are described as intermittent, sharp. Modifying factors: The symptoms are alleviated by nothing, the symptoms are aggravated by touching the area. Severity of pain: At its worst the pain was moderate in the emergency department the pain is unchanged. The patient has experienced a previous episode. 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 No trauma. + vomiting and diarrhea. . 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 - Social history:: Smoking status: Patient uses tobacco products, smokes one-half pack cigarettes per day. - Ebola Screening: : No symptoms or risks identified at this time. - Family history:: not pertinent. - Hospitalizations: : No recent hospitalization is reported. ROS: 03:43 Constitutional: + fever and chills Eyes: Negative for injury, pain, redness, and learning support teacher, ENT: Negative for injury, pain, and discharge, Neck: Negative for injury, pain, and swelling, Cardiovascular: Negative for chest pain, palpitations, and edema, Respiratory: Negative for shortness of breath, cough, wheezing, and pleuritic chest pain, Abdomen/GI: + abd pain and nausea/vomiting : Negative for injury, bleeding, discharge, and swelling, MS/Extremity: Negative for injury and deformity, Skin: Negative for injury Neuro: Negative for headache, weakness, numbness, tingling, and seizure. Exam: 03:43 Constitutional: This is a well developed, well nourished patient who is awake, alert, rn appears uncomfortable Head/Face: Normocephalic, atraumatic. ENT: dry MM Cardiovascular: tachycardic, regular, no murmur Respiratory: Hyperventilating, clear bilateral breath sounds. Abdomen/GI: soft, + RUQ and right flank tenderness, no rebound, no masses Skin: Warm, dry, no evidence of cellulitis, + multiple signs of IV drug use MS/ Extremity: Pulses equal, no cyanosis. Neurovascular intact. Full, normal range of motion. Equal circumference. Neuro: Awake and alert, GCS 15, oriented to person, place, time, and situation. Cranial nerves II-XII grossly intact. Motor strength 5/5 in all extremities. Sensory grossly intact. Cerebellar exam normal. Vital Signs: 03:28 BP 121 / 86; Pulse 127; Resp 20; Temp 98.1; Pulse Ox 96% on R/A; Weight 56.7 kg; Height ea 5 ft. 2 in. (157.48 cm); 04:00 Pulse 115; Resp 18; Pulse Ox 98% ; ea 05:07 BP 97 / 61; Pulse 114; Resp 18; Pulse Ox 97% ; ea 06:00 BP 108 / 72; Pulse 115; Resp 18; Pulse Ox 100% ; ea 07:15 BP 102 / 73; Pulse 116; Resp 18; Pulse Ox 100% ; bp 09:17 BP 106 / 75; Pulse 100; Resp 18; Temp 98; Pulse Ox 100% on R/A; bp 03:28 Body Mass Index 22.86 (56.70 kg, 157.48 cm) ea MDM: 03:24 Patient medically screened. rn 06:13 ED course: CT abdomen without acute findings of abdomen but shows suspicious lesions in rn lungs concerning for infection/mass/septic pulmonary emboli, patient states pain worse with deep inspiration, denies cough, is IV and skin drug user, will get blood cultures, give abx, and hydrate for CT chest with contrast. Spoke with picking tech, states ok to give more contrast due to normal renal function and hasn't reached maximum contrast dosage. . 08:53 Data reviewed: vital signs, nurses notes, lab test result(s), radiologic studies, and ps1 as a result, I will discharge patient. Counseling: I had a detailed discussion with the patient and/or guardian regarding: the historical points, exam findings, and any diagnostic results supporting the discharge/admit diagnosis, lab results, radiology results, the need for outpatient follow up, to return to the emergency department if symptoms worsen or persist or if there are any questions or concerns that arise at home. ED course: CT scan possible infiltrate vs inflammation. Likely inflammation 2/2 talc deposits from IVDA/injecting drywall. No fever or leukocytosis. Will cover with levaquin and medrol for inflammation. Stable for discharge. . 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 10/01 03:42 Order name: Basic Metabolic Panel; Complete Time: 05:03 rn 10/01 03:42 Order name: CBC with Diff; Complete Time: 04:41 rn 10/01 03:42 Order name: Hepatic Function; Complete Time: 05:03 rn 10/01 03:42 Order name: Lipase; Complete Time: 05:03 rn 10/01 03:44 Order name: Creatinine (Radiology Only); Complete Time: 05:03 EDIA 10/01 03:42 Order name: CT Abd/Pelvis - IV Contrast Only rn 10/01 06:03 Order name: CT Chest For PE Angio; Complete Time: 08:38 rn 10/01 03:42 Order name: IV Saline Lock; Complete Time: 05:00 rn 10/01 03:42 Order name: Labs collected and sent; Complete Time: 04:23 rn Administered Medications: 04:10 Drug: NS 0.9% 1000 ml Route: IV; Rate: 1000 ml; Site: left antecubital; lp1 04:32 Follow up: IV SiteChange: right antecubital; IV SiteChange Reason: Infiltration lp1 04:10 Drug: Zofran 4 mg Route: IVP; Site: left antecubital; lp1 05:10 Follow up: Response: No adverse reaction ea 04:34 Drug: Demerol 25 mg Route: IVP; Site: right antecubital; ea 05:10 Follow up: Response: No adverse reaction; Pain is decreased ea 05:09 Drug: Potassium Chloride 40 mEq Route: PO; ea 08:15 Follow up: Response: No adverse reaction bp 06:13 Drug: NS 0.9% 1000 ml Route: IV; Rate: 1 bolus; Site: right antecubital; ea Disposition: 10/01/18 08:51 Discharged to Home. Impression: Unspecified abdominal pain, Vomiting, Diarrhea, unspecified, Dehydration, Hypokalemia. - Condition is Stable. - Discharge Instructions: Abdominal Pain, Adult, Dehydration, Adult, Diarrhea, Adult, Nausea and Vomiting, Adult, Incidental Abnormal Radiological Finding. - Prescriptions for Zofran ODT 4 mg Oral tablet,disintegrating - place 1 tablet by TRANSLINGUAL route every 8 hours As needed; 20 tablet. Levaquin 750 mg Oral Tablet - take 1 tablet by ORAL route once daily for 10 days; 10 tablet. Medrol (Robbie) 4 mg Oral Tablets, Dose Pack - take 1 tablet by ORAL route as directed - follow package instructions; 1 packet. - Medication Reconciliation Form, Thank You Letter, Antibiotic Education, Prescription Opioid Use form. - Follow up: Private Physician; When: As needed; Reason: Recheck today's complaints, Re-evaluation by your physician. - Problem is new. - Symptoms have improved. Signatures: Dispatcher [employer] EDMS Diego Ambriz MD MD rn Pena, Laura, RN RN lp1 Matilde Gore RN RN Vijay Fields, RN RN Andres Field MD MD ps1 Corrections: (The following items were deleted from the chart) 09:20 08:51 10/01/2018 08:51 Discharged to Home. Impression: Unspecified abdominal pain; bp Vomiting; Diarrhea, unspecified; Dehydration; Hypokalemia. Condition is Stable. Discharge Instructions: Abdominal Pain, Adult, Dehydration, Adult, Diarrhea, Adult, Nausea and Vomiting, Adult. Prescriptions for Zofran ODT 4 mg Oral tablet,disintegrating - place 1 tablet by TRANSLINGUAL route every 8 hours As needed; 20 tablet. and Forms are Medication Reconciliation Form, Thank You Letter, Antibiotic Education, Prescription Opioid Use. Follow up: Private Physician; When: As needed; Reason: Recheck today's complaints, Re-evaluation by your physician. Problem is new. Symptoms have improved. ps1
[2018-10-01] MEDS ORDERED: IBUPROFEN 400 MG TAB ONE (09:13)
--- NOTE | 2018-10-01 10:58 | RAD REPORT ---
EXAM DESCRIPTION: CT - Abdomen Pelvis W Contrast - 10/01/2018 6:02 am CLINICAL HISTORY: Right upper abdominal pain. COMPARISON: None Available. TECHNIQUE: CT of the abdomen and pelvis performed following IV administration of iodinated contrast. DLP: 873.5 mGycm FINDINGS: Lung Bases: Within the visualized lung bases. Incompletely visualized peripheral nodular o pacities one of the chest in the right lung may demonstrate central cavitation. The largest of these is in the lingula measuring 1.5 cm. Bones: No destructive bone lesions identified. Abdomen: Liver: The liver has normal size and density. No intrahepatic mass or biliary dilatation. Gallbladder: No calcified gallstones. Spleen, Pancreas, and Adrenal Glands: Splenomegaly. No abnormalities of the adrenal glands or pancr eas. Kidneys: No hydronephrosis or solid renal mass. Vasculature: The aorta and IVC have normal caliber and position. The portal vein is patent. The pro ximal visceral and renal arteries are patent. Stomach: The stomach and duodenum have normal course. Other: No free intraperitoneal air. Trace free fluid. Pelvis: Bladder: Urinary bladder is unremarkable. Bowel: No dilated loops of large or small bowel. Appendix: Normal appendix. Pelvis: Uterus is not enlarged. IMPRESSION: 1. Multiple peripheral nodular opacities identified in the visualized lung bases, the la rgest measuring 1.5 cm. Differential considerations include septic pulmonary emboli, granulomatosis w ith polyangiitis (Zeeshan's disease), and metastatic disease. Dedicated CT of the chest recommended f or complete characterization. 2. Small amount of free pelvic fluid is nonspecific and may be physiologic. 3. Splenomegaly. This exam was performed according to our departmental dose-optimization program, which includes autom ated exposure control, adjustment of the mA and/or kV according to patient size and/or use of iterati ve reconstruction technique. Electronically signed by: Jevon Nelson 10/01/2018 5:58 AM CDT Due to temporary technical issues with the PACS/Fluency reporting system, reports are being signed by the in house radiologist as a courtesy to ensure prompt reporting. The interpreting radiologist is f ully responsible for the content of the report.
== END 2018-10-01 09:20 | disposition home or self-care (01) ==
LOC: ER 03:22
DX: R11.10 Vomiting, unspecified (principal); R19.7 Diarrhea, unspecified; E86.0 Dehydration; E87.6 Hypokalemia; F17.210 Nicotine dependence, cigarettes, uncomplicated; Z88.1 Allergy status to other antibiotic agents; Z88.6 Allergy status to analgesic agent
CPT/HCPCS: 36415; 71275; 74177; 80048; 80076; 83690; 85025; 99285; J2175; J2405; J7030; Q9967

== ENCOUNTER 2018-10-02 17:29 | Emergency (ER) | payer SELFPAY ==
[2018-10-02] MEDS ORDERED: IBUPROFEN 200 MG TAB PO ONE (20:25)
[2018-10-02] MEDS ORDERED: NA CHLORIDE 0.9% 1,000 ML ONE (20:49)
[2018-10-02 21:18] LABS: Absolute Lymphocytes (CBC) 1.1 K/uL (0.7-4.9); Absolute Monocytes 0.5 K/uL (0.1-1.3); Absolute Neutrophil 5.8 K/uL (1.8-8.0); Basophils % 0.1 % (0-1.3); Eosinophils % 0.1 % (0-4.4); Hematocrit 29.7 % (36.0-45.0); Lymphocytes % 14.4 % (15.3-44.8); MPV 8.5 fL (7.6-11.3); Monocytes % 6.5 % (3.3-12.3)
[2018-10-02 21:29] LABS: ALT/SGPT 24 U/L (12-78); AST/SGOT 34 U/L (15-37); Albumin 2.9 g/dL (3.4-5.0); Alkaline Phosphatase 114 U/L (45-117); BUN Blood Urea Nitrogen 5 mg/dL (7-18); Bicarbonate 28 mmol/L (21-32); Bilirubin Direct 0.1 mg/dL (0-0.2); Bilirubin Total 0.4 mg/dL (0.2-1.0); Glucose Level 112 mg/dL (74-106); Potassium 3.5 mmol/L (3.5-5.1); Protein, Total 7.2 g/dL (6.4-8.2); Sodium Level 132 mmol/L (136-145)
--- NOTE | 2018-10-03 00:08 | ER ---
Nurse's Notes [facility] Name: Mya Newman Age: 28 yrs Sex: Female : 1990 Arrival Date: 10/02/2018 Time: 17:31 Bed 16 Private MD: Diagnosis: Vomiting;Syncope and collapse;Pneumonia, unspecified organism;Cellulitis, unspecified Presentation: 10/02 17:44 Presenting complaint: Patient states: i WAS SEEN HERE YESTERDAY, DX WITH VOMITING AND ch DEHYDRATION AND LOW K. I CANNOT AFFORD MY PRESCRIPTIONS, SO I DIDN'T FILL THEM. I FEEL WORSE. Transition of care: patient was not received from another setting of care. Onset of symptoms was September 24, 2018. Risk Assessment: Do you want to hurt yourself or someone else? Patient reports no desire to harm self or others. Initial Sepsis Screen: Does the patient meet any 2 criteria? No. Patient's initial sepsis screen is negative. Does the patient have a suspected source of infection? No. Patient's initial sepsis screen is negative. Care prior to arrival: None. 17:44 Method Of Arrival: Wheelchair 17:44 Acuity: BECKI 3 ch Triage Assessment: 17:46 General: Appears in no apparent distress. uncomfortable, Behavior is anxious, restless. Pain: Complains of pain in head and abdomen. Respiratory: Reports shortness of breath Airway is patent Breath sounds are clear bilaterally. Onset: The symptoms/episode began/occurred. Historical: - Allergies: 17:46 Amoxicillin; ch 17:46 Tylenol; - Home Meds: 17:46 None [Active]; - PMHx: 17:46 Anemia; Hepatitis; - PSHx: 17:46 Tonsillectomy; - Immunization history:: Adult Immunizations unknown. - Social history:: Smoking status: Patient/guardian denies using tobacco, Patient uses street drugs, marijuana, BENZOS. - Ebola Screening: : Patient negative for fever greater than or equal to 101.5 degrees Fahrenheit, and additional compatible Ebola Virus Disease symptoms Patient denies exposure to infectious person Patient denies travel to an Ebola-affected area in the 21 days before illness onset No symptoms or risks identified at this time. Screenin:10 Abuse screen: Denies threats or abuse. Nutritional screening: No deficits noted. jb4 Tuberculosis screening: No symptoms or risk factors identified. Fall Risk IV access (20 points). Total Ferrell Fall Scale indicates No Risk (0-24 pts). Assessment: 19:10 General: Appears in no apparent distress. uncomfortable, Behavior is calm, cooperative, jb4 appropriate for age. Pain: Complains of pain in anterior aspect of right lateral abdomen and anterior aspect of left lateral abdomen Pain radiates to left trapezius, right trapezius, left scapular area, right scapular area and mid back area Pain currently is 7 out of 10 on a pain scale. Neuro: Level of Consciousness is awake, alert, obeys commands, Oriented to person, place, time, situation. Cardiovascular: Patient's skin is warm and dry. Rhythm is sinus tachycardia. Respiratory: Airway is patent Respiratory effort is even, unlabored, shallow, Respiratory pattern is regular, symmetrical, Breath sounds are clear bilaterally. GI: No signs and/or symptoms were reported involving the gastrointestinal system. : No signs and/or symptoms were reported regarding the genitourinary system. EENT: No signs and/or symptoms were reported regarding the EENT system. Derm: Skin Intact, abrasion noted to the left calf, swollen area noted to the left wrist and right forearm. Skin is pink, warm \T\ dry. Musculoskeletal: Circulation, motion, and sensation intact. 20:00 Reassessment: Patient appears in no apparent distress at this time. Patient and/or jb4 family updated on plan of care and expected duration. Pain level reassessed. Patient is alert, oriented x 3, equal unlabored respirations, skin warm/dry/pink. 21:00 Reassessment: Patient appears in no apparent distress at this time. Patient and/or jb4 family updated on plan of care and expected duration. Pain level reassessed. Patient is alert, oriented x 3, equal unlabored respirations, skin warm/dry/pink. Provider at the bedside initiating IVin pt's left ankle. 22:21 Reassessment: Patient appears in no apparent distress at this time. Patient and/or jb4 family updated on plan of care and expected duration. Pain level reassessed. Patient is alert, oriented x 3, equal unlabored respirations, skin warm/dry/pink. Pt given a bed bustillo per request. 23:00 Reassessment: Patient appears in no apparent distress at this time. Patient and/or jb4 family updated on plan of care and expected duration. Pain level reassessed. Patient is alert, oriented x 3, equal unlabored respirations, skin warm/dry/pink. Patient states feeling better. 10/03 00:00 Reassessment: Patient appears in no apparent distress at this time. Patient and/or jb4 family updated on plan of care and expected duration. Pain level reassessed. Patient is alert, oriented x 3, equal unlabored respirations, skin warm/dry/pink. Taken food and drinks per request. Patient states feeling better. Vital Signs: 10/02 17:46 BP 103 / 71; Pulse 120; Resp 17; Temp 98.3; Pulse Ox 99% on R/A; Weight 56.7 kg; Height 5 ft. 2 in. (157.48 cm); Pain 8/10; 19:34 BP 108 / 74; Pulse 120; Resp 16; Pulse Ox 100% on R/A; Pain 7/10; jb4 20:01 Temp 101.9(O); jb4 21:11 BP 104 / 53; Pulse 106; Resp 16; Temp 99.8(O); Pulse Ox 100% on R/A; jb4 22:05 BP 106 / 62; Pulse 102; Resp 16; Pulse Ox 100% on R/A; jb4 23:00 BP 94 / 51; Pulse 85; Resp 16; Pulse Ox 99% on R/A; jb4 10/03 00:00 BP 106 / 73; Pulse 100; Resp 16; Temp 98.2(O); Pulse Ox 100% on R/A; jb4 10/02 17:46 Body Mass Index 22.86 (56.70 kg, 157.48 cm) ED Course: 10/02 17:31 Patient arrived in ED. rg4 17:45 Triage completed. ch 17:46 Arm band placed on left wrist. Patient placed in waiting room. 17:52 EKG completed in triage. Results shown to MD. 19:00 Patient has correct armband on for positive identification. Placed in gown. Bed in low jb4 position. Call light in reach. Side rails up X 1. Pulse ox on. NIBP on. 19:17 Timbo Canas MD is Attending Physician. 19:42 Kojo Millan, KRISTOPHER is Primary Nurse. jb4 20:40 Initial lab(s) drawn, by me, sent to lab. First set of blood cultures drawn by me. bb 20:51 Missed attempt(s): 20 gauge in right upper arm. Bleeding controlled, band aid applied, bb catheter tip intact. 10/03 00:36 No provider procedures requiring assistance completed. IV discontinued, intact, jb4 bleeding controlled, No redness/swelling at site. Pressure dressing applied. Administered Medications: 10/02 20:13 Drug: Motrin 600 mg Route: PO; jb4 20:43 Follow up: Response: No adverse reaction; Temperature is decreased jb4 21:12 Drug: NS 0.9% 1000 ml {Note: administered right ankle.} Route: IV; Rate: 1 bolus; Site: jb4 Other; 22:15 Follow up: Response: No adverse reaction; IV Status: Completed infusion; IV Intake: jb4 1000ml Intake: 22:15 IV: 1000ml; Total: 1000ml. [facility] Outcome: 10/03 00:07 Discharge ordered by . 00:36 Discharged to home ambulatory, with family. jb4 00:36 Condition: stable 00:36 Discharge instructions given to patient, family, Instructed on discharge instructions, follow up and referral plans. medication usage, Demonstrated understanding of instructions, follow-up care, medications, Prescriptions given X 1. 00:39 Patient left the ED. jb4 Addendum: 10/06/2018 07:52 Addendum: Culture Results: Positive urine culture. No further action required. Bacteria s s sensitive to prescribed antibiotic. Signatures: Tawanna Mota RN RN ch Ballard, Brenda, RN RN bb Smirch, Shelby, RN RN ss Garcia, Rubi rg4 Bryson, James, RN RN [facility] Timbo Canas MD MD gs Corrections: (The following items were deleted from the chart) 10/02 22:21 19:10 Derm: Skin is intact, Skin is pink, warm \T\ dry. jb4 jb 10/03 00:37 10/02 19:10 Cardiovascular: Patient's skin is warm and dry. [place] [id number] 10/03 00:40 00:00 BP 106 / 73; Pulse 100bpm; Resp 16bpm; Pulse Ox 100% RA; jb4 [facility]
--- NOTE | 2018-10-03 00:09 | EDPHYS ---
Physician Documentation [facility] Name: Mya Newman Age: 28 yrs Sex: Female : 1990 Arrival Date: 10/02/2018 Time: 17:31 Bed 16 Private MD: ED Physician Timbo Canas HPI: 10/03 00:38 This 28 yrs old Female presents to ER via Wheelchair with complaints of gs Syncope. 00:39 The patient has experienced syncope, collapsed. Onset: The symptoms/episode gs began/occurred acutely, today. Context: has been ill dx with pneumonia yest, out in sun heat today looking for sig other. Associated injury: The patient did not suffer any apparent associated injury. Associated signs and symptoms: Pertinent positives: vomiting, Pertinent negatives: abdominal pain, confusion. The patient has experienced similar episodes in the past, a few times. Historical: - Allergies: 10/02 17:46 Amoxicillin; ch 17:46 Tylenol; ch - Home Meds: 17:46 None [Active]; ch - PMHx: 17:46 Anemia; Hepatitis; ch - PSHx: 17:46 Tonsillectomy; ch - Immunization history:: Adult Immunizations unknown. - Social history:: Smoking status: Patient/guardian denies using tobacco, Patient uses street drugs, marijuana, BENZOS. - Ebola Screening: : Patient negative for fever greater than or equal to 101.5 degrees Fahrenheit, and additional compatible Ebola Virus Disease symptoms Patient denies exposure to infectious person Patient denies travel to an Ebola-affected area in the 21 days before illness onset No symptoms or risks identified at this time. ROS: 10/03 00:39 All other systems are negative. gs Exam: 00:39 Head/Face: Normocephalic, atraumatic. Eyes: Pupils equal round and reactive to light, gs extra-ocular motions intact. Lids and lashes normal. Conjunctiva and sclera are non-icteric and not injected. Cornea within normal limits. Periorbital areas with no swelling, redness, or edema. ENT: Nares patent. No nasal discharge, no septal abnormalities noted. Tympanic membranes are normal and external auditory canals are clear. Oropharynx with no redness, swelling, or masses, exudates, or evidence of obstruction, uvula midline. Mucous membranes moist. Neck: Trachea midline, no thyromegaly or masses palpated, and no cervical lymphadenopathy. Supple, full range of motion without nuchal rigidity, or vertebral point tenderness. No Meningismus. Chest/axilla: Normal chest wall appearance and motion. Nontender with no deformity. No lesions are appreciated. 00:39 Respiratory: Lungs have equal breath sounds bilaterally, clear to auscultation and percussion. No rales, rhonchi or wheezes noted. No increased work of breathing, no retractions or nasal flaring. Abdomen/GI: Soft, non-tender, with normal bowel sounds. No distension or tympany. No guarding or rebound. No evidence of tenderness throughout. Back: No spinal tenderness. No costovertebral tenderness. Full range of motion. Skin: Warm, dry with normal turgor. Normal color with no rashes, no lesions, and no evidence of cellulitis. MS/ Extremity: Pulses equal, no cyanosis. Neurovascular intact. Full, normal range of motion. Neuro: Awake and alert, GCS 15, oriented to person, place, time, and situation. Cranial nerves II-XII grossly intact. Motor strength 5/5 in all extremities. Sensory grossly intact. Cerebellar exam normal. Normal gait. 00:39 Cardiovascular: Rate: tachycardic, Rhythm: regular, Pulses: no pulse deficits are appreciated, Heart sounds: normal. 00:39 ECG was reviewed by the Attending Physician. Vital Signs: 10/02 17:46 BP 103 / 71; Pulse 120; Resp 17; Temp 98.3; Pulse Ox 99% on R/A; Weight 56.7 kg; Height ch 5 ft. 2 in. (157.48 cm); Pain 8/10; 19:34 BP 108 / 74; Pulse 120; Resp 16; Pulse Ox 100% on R/A; Pain 7/10; jb4 20:01 Temp 101.9(O); jb4 21:11 BP 104 / 53; Pulse 106; Resp 16; Temp 99.8(O); Pulse Ox 100% on R/A; jb4 22:05 BP 106 / 62; Pulse 102; Resp 16; Pulse Ox 100% on R/A; jb4 23:00 BP 94 / 51; Pulse 85; Resp 16; Pulse Ox 99% on R/A; jb4 10/03 00:00 BP 106 / 73; Pulse 100; Resp 16; Temp 98.2(O); Pulse Ox 100% on R/A; jb4 10/02 17:46 Body Mass Index 22.86 (56.70 kg, 157.48 cm) ch MDM: 10/02 19:39 Patient medically screened. 10/03 00:39 Data reviewed: vital signs, nurses notes, lab test result(s), EKG, radiologic studies. Counseling: I had a detailed discussion with the patient and/or guardian regarding: the historical points, exam findings, and any diagnostic results supporting the discharge/admit diagnosis, the need for outpatient follow up. Response to treatment: the patient's symptoms have markedly improved after treatment, hr down,hydrated, addition abx for injection sites. 10/02 19:40 Order name: CBC with Diff; Complete Time: 21:51 10/02 19:40 Order name: Basic Metabolic Panel; Complete Time: 21:51 10/02 20:03 Order name: Blood Culture* 10/02 20:03 Order name: Procalcitonin; Complete Time: 21:51 10/02 20:03 Order name: Lactate; Complete Time: 21:51 10/02 19:40 Order name: EKG Strip; Complete Time: 20:11 10/02 20:03 Order name: Flu; Complete Time: 20:54 10/02 20:05 Order name: Blood Culture EDMS 10/02 21:02 Order name: Liver (Hepatic) Function; Complete Time: 21:51 EDMS EC:39 Rate is 122 beats/min. Rhythm is regular. MA interval is normal. QRS interval is gs normal. QT interval is normal. T waves are Normal. No ST changes noted. Clinical impression: Sinus tachycardia. Interpreted by me. Administered Medications: 10/02 20:13 Drug: Motrin 600 mg Route: PO; jb4 20:43 Follow up: Response: No adverse reaction; Temperature is decreased 4 21:12 Drug: NS 0.9% 1000 ml {Note: administered right ankle.} Route: IV; Rate: 1 bolus; Site: jb4 Other; 22:15 Follow up: Response: No adverse reaction; IV Status: Completed infusion; IV Intake: jb4 1000ml Disposition: 10/03/18 00:07 Discharged to Home. Impression: Vomiting, Syncope and collapse, Pneumonia, unspecified organism, Cellulitis, unspecified. - Condition is Stable. - Discharge Instructions: Cellulitis, Adult, Nausea and Vomiting, Adult, Pneumonia, Child, Syncope. - Prescriptions for Bactrim DS 800- 160 mg Oral Tablet - take 2 tablet by ORAL route every 12 hours for 10 days; 40 tablet. - Medication Reconciliation Form, Thank You Letter, Antibiotic Education, Prescription Opioid Use form. - Follow up: Private Physician; When: 2 - 3 days; Reason: Re-evaluation by your physician. Signatures: Dispatcher [employer] [facility] Tawanna Mota, RN RN Kojo Millan RN RN jb4 Timbo Canas MD MD gs Corrections: (The following items were deleted from the chart) 21:03 20:05 HEPATIC FUNCTION+[id number].LAB.BRZ ordered. [facility] 10/03 00:39 00:07 10/03/2018 00:07 Discharged to Home. Impression: Vomiting; Syncope and collapse; jb4 Pneumonia, unspecified organism; Cellulitis, unspecified. Condition is Stable. Forms are Medication Reconciliation Form, Thank You Letter, Antibiotic Education, Prescription Opioid Use. Follow up: Private Physician; When: 2 - 3 days; Reason: Re-evaluation by your physician. gs
--- NOTE | 2018-10-03 14:02 | EKG ---
Test Date: 2018-10-02 Test Time: 17:54:12 Chief Knowledge Officer: BRONSON MEASUREMENT RESULTS: Intervals: Rate: 122 MD: 120 QRSD: 80 QT: 280 QTc: 399 [place]: P: 8 MD: 120 QRS: 47 T: 52 INTERPRETIVE STATEMENTS: Sinus tachycardia Otherwise normal ECG Electronically Signed On 10-03-18 14:01:38 CDT by Anant Arroyo
== END 2018-10-03 00:39 | disposition home or self-care (01) ==
LOC: ER 17:29
DX: J18.9 Pneumonia, unspecified organism (principal); R11.10 Vomiting, unspecified; L03.90 Cellulitis, unspecified; Z88.1 Allergy status to other antibiotic agents; Z88.6 Allergy status to analgesic agent
CPT/HCPCS: 36415; 80048; 80076; 83605; 84145; 85025; 87040; 87077; 87186; 87205; 87804; 93005; 96360; 99284; J7030

== ENCOUNTER 2018-10-08 07:33 | Emergency (ER) | payer SELFPAY ==
[2018-10-08 08:46] LABS: Absolute Lymphocytes (CBC) 0.7 K/uL (0.7-4.9); Basophils % 0.1 % (0-1.3); Eosinophils % 0.1 % (0-4.4); Hematocrit 32.6 % (36.0-45.0); Lymphocytes % 9.7 % (15.3-44.8); MPV 8.7 fL (7.6-11.3); Monocytes % 5.2 % (3.3-12.3); RBC Red Blood Cell Count 3.69 M/uL (3.86-4.86)
[2018-10-08] MEDS ORDERED: NA CHLORIDE 0.9% 1,000 ML ONE (08:49)
[2018-10-08] MEDS ORDERED: TETANUS & DIPHTHERIA TOX,ADULT 0.5 ML VIAL ONE (08:50)
[2018-10-08 09:07] LABS: ALT/SGPT 39 U/L (12-78); AST/SGOT 38 U/L (15-37); Albumin 2.3 g/dL (3.4-5.0); Alkaline Phosphatase 135 U/L (45-117); BUN Blood Urea Nitrogen 10 mg/dL (7-18); Bicarbonate 32 mmol/L (21-32); Bilirubin Direct 0.2 mg/dL (0-0.2); Bilirubin Total 0.5 mg/dL (0.2-1.0); Glucose Level 104 mg/dL (74-106); Potassium 3.1 mmol/L (3.5-5.1); Protein, Total 7.1 g/dL (6.4-8.2); Sodium Level 137 mmol/L (136-145)
[2018-10-08] MEDS ORDERED: KETOROLAC 30 MG/ML INJ ONE (11:09)
[2018-10-08] MEDS ORDERED: LIDOCAINE 1% MPF 5 ML VIAL ONE (11:09)
--- NOTE | 2018-10-08 12:47 | EDPHYS ---
Physician Documentation [facility] Name: Mya Newman Age: 28 yrs Sex: Female : 1990 Arrival Date: 10/08/2018 Time: 07:37 Bed 18 Private MD: ED Physician Lester Cobb HPI: 10/08 12:36 This 28 yrs old Female presents to ER via EMS with complaints of Abscess. pm1 12:36 The patient presents with an abscess of the dorsal aspect of left forearm. Description: pm1 raised. Onset: The symptoms/episode began/occurred 3 day(s) ago. Possible cause(s): drug use, shooting meth and missed her vein. Associated signs and symptoms: Pertinent negatives: discharge, drainage, fever. Modifying factors: the symptoms are alleviated by nothing, the symptoms are aggravated by touching. Severity of symptoms: in the emergency department the symptoms are actually worse. The patient has not experienced similar symptoms in the past. The patient has been recently seen at the [facility] Emergency Department, three days ago for similar complaints. Did not take her antibiotics. 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 - Social history:: Smoking status: Patient/guardian denies using tobacco, Patient uses street drugs, Methamphetamine (Meth) IV drugs, amphetamines, The patient lives on [place], No barriers to communication noted, The patient speaks fluent Moroccan. - Ebola Screening: : Patient negative for fever greater than or equal to 101.5 degrees Fahrenheit, and additional compatible Ebola Virus Disease symptoms Patient denies exposure to infectious person Patient denies travel to an Ebola-affected area in the 21 days before illness onset No symptoms or risks identified at this time. ROS: 12:36 Constitutional: Negative for fever, chills, and weight loss, Eyes: Negative for injury, pm1 pain, redness, and discharge, ENT: Negative for injury, pain, and discharge, Neck: Negative for injury, pain, and swelling, Cardiovascular: Negative for chest pain, palpitations, and edema, Respiratory: Negative for shortness of breath, cough, wheezing, and pleuritic chest pain, Abdomen/GI: Negative for abdominal pain, nausea, vomiting, diarrhea, and constipation, Back: Negative for injury and pain, : Negative for injury, bleeding, discharge, and swelling, MS/Extremity: Negative for injury and deformity. 12:36 Skin: Positive for abscess, of the dorsal aspect of left forearm, Negative for cellulitis. Exam: 12:36 Constitutional: This is a well developed, well nourished patient who is awake, alert, pm1 and in no acute distress. Head/Face: Normocephalic, atraumatic. Eyes: Pupils equal round and reactive to light, extra-ocular motions intact. Lids and lashes normal. Conjunctiva and sclera are non-icteric and not injected. Cornea within normal limits. Periorbital areas with no swelling, redness, or edema. ENT: Nares patent. No nasal discharge, no septal abnormalities noted. Tympanic membranes are normal and external auditory canals are clear. Oropharynx with no redness, swelling, or masses, exudates, or evidence of obstruction, uvula midline. Mucous membranes moist. Neck: Trachea midline, no thyromegaly or masses palpated, and no cervical lymphadenopathy. Supple, full range of motion without nuchal rigidity, or vertebral point tenderness. No Meningismus. Chest/axilla: Normal chest wall appearance and motion. Nontender with no deformity. No lesions are appreciated. Cardiovascular: Regular rate and rhythm with a normal S1 and S2. No gallops, murmurs, or rubs. Normal PMI, no JVD. No pulse deficits. Respiratory: Lungs have equal breath sounds bilaterally, clear to auscultation and percussion. No rales, rhonchi or wheezes noted. No increased work of breathing, no retractions or nasal flaring. Abdomen/GI: Soft, non-tender, with normal bowel sounds. No distension or tympany. No guarding or rebound. No evidence of tenderness throughout. Back: No spinal tenderness. No costovertebral tenderness. Full range of motion. 12:36 MS/ Extremity: Pulses equal, no cyanosis. Neurovascular intact. Full, normal range of motion. 12:36 Skin: Appearance: normal except for affected area, abscess, that is moderate sized, approximately 5 cm(s), of the dorsal aspect of left forearm, with fluctuance, no drainage, pointing, induration, or surrounding cellulitis, cellulitis, is not appreciated. 12:36 Neuro: Orientation: is normal, Motor: is normal, Sensation: is normal, no obvious gross deficits. Vital Signs: 07:44 BP 90 / 48; Pulse 73; Resp 14; Temp 97.6; Pulse Ox 98% on R/A; Weight 56.7 kg; Height 5 ls4 ft. 2 in. (157.48 cm); Pain 8/10; 09:00 BP 90 / 50; Pulse 71; Resp 14; Pulse Ox 100% on R/A; hb 10:00 BP 94 / 59; Pulse 70; Resp 15; Pulse Ox 100% on R/A; hb 10:30 BP 108 / 68; Pulse 81; Resp 15; Pulse Ox 100% on R/A; hb 12:00 BP 100 / 69; Pulse 68; Resp 14; Pulse Ox 100% on R/A; Pain 8/10; hb 13:00 BP 102 / 68; Pulse 66; Resp 15; Pulse Ox 100% on R/A; hb 14:00 BP 106 / 70; Pulse 65; Resp 14; Temp 97.8; Pulse Ox 100% on R/A; hb 07:44 Body Mass Index 22.86 (56.70 kg, 157.48 cm) ls4 Procedures: 12:43 I \T\ D: Incision and drainage was performed for an abscess of the left dorsal aspect of pm1 left forearm Prepped with Betadine, Anesthetized with 3 ml's 1% Lidocaine. Incised with #11 blade. Drained large amount purulent fluid. Loculations removed. Cultures obtained. Abscess cavity explored. Packed with iodoform gauze, Dressing: sterile 4x4 gauze, the patient tolerated the procedure well. MDM: 07:39 Patient medically screened. pm1 12:43 Data reviewed: vital signs. Data interpreted: Pulse oximetry: on room air is 100 %. pm1 Interpretation: normal. Counseling: I had a detailed discussion with the patient and/or guardian regarding: the historical points, exam findings, and any diagnostic results supporting the discharge/admit diagnosis, lab results, the need for outpatient follow up, a general surgeon, to return to the emergency department if symptoms worsen or persist or if there are any questions or concerns that arise at home. 12:43 ED course: Patient without any signs of sepsis. Localized abscess to left forearm. No pm1 surrounding cellulitis. Patient without admission criteria, therefore I will discharge the patient home with antibiotics based on prior to blood culture results. Will reiterate that the patient get her Bactrim that was previously prescribed. 10/08 08:05 Order name: CBC with Diff; Complete Time: 09:06 pm1 10/08 08:05 Order name: BMP; Complete Time: 09:21 pm1 10/08 08:05 Order name: LFT's; Complete Time: 09:21 pm1 10/08 08:11 Order name: Blood Culture Adult (2) pm1 10/08 09:20 Order name: Procalcitonin; Complete Time: 10:13 pm1 10/08 09:20 Order name: Lactate; Complete Time: 10:13 pm1 10/08 12:52 Order name: Wound Culture 3 10/08 08:02 Order name: Urine Dipstick-Ancillary (obtain specimen); Complete Time: 14:18 pm10/08 08:02 Order name: Urine Test (obtain specimen); Complete Time: 14:18 pm1 10/08 08:05 Order name: IV Saline Lock; Complete Time: 08:40 pm1 10/08 10:21 Order name: Incision \T\ Drainage Setup; Complete Time: 12:02 pm1 10/08 12:46 Order name: Diet Regular; Complete Time: 12:49 3 Administered Medications: 08:30 Drug: Tetanus-Diphtheria Toxoid Adult 0.5 ml {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 Exp: hb 07/12/2020. Lot #: [id number]. } Route: IM; Site: right deltoid; 08:55 Follow up: Response: No adverse reaction hb 08:39 Drug: NS 0.9% 1000 ml Route: IV; Rate: 1000 ml; Site: left antecubital; hb 10:00 Follow up: Response: No adverse reaction; IV Status: Completed infusion; IV Intake: hb 1000ml 10:54 Drug: TORadol 30 mg Route: IVP; Site: left antecubital; hb 11:40 Follow up: Response: No adverse reaction hb 12:41 Drug: Lidocaine (1 %) 5 ml {Note: Administered by TAYLOR Polk.} Volume: 5 ml; Route: hb Infiltration; 13:02 Drug: morphine 4 mg Route: IVP; Site: left antecubital; hb 14:44 Drug: Bactrim (160 mg-800 mg (DS) 1 tablet Route: PO; hb 14:44 Drug: Clindamycin 600 mg Route: IM; Site: Other; hb Disposition: 16:17 Co-signature as Attending Physician, Lester Cobb MD I agree with the assessment and kdr plan of care. Disposition: 10/08/18 12:47 Discharged to Home. Impression: Cutaneous abscess of left upper limb. - Condition is Stable. - Discharge Instructions: Skin Abscess, Incision and Drainage. - Prescriptions for Bactrim DS 800- 160 mg Oral Tablet - take 1 tablet by ORAL route every 12 hours for 10 days; 20 tablet. Clindamycin HCl 300 mg Oral Capsule - take 1 capsule by ORAL route every 6 hours for 10 days; 40 capsule. - Medication Reconciliation Form, Thank You Letter, Antibiotic Education, Prescription Opioid Use form. - Follow up: Emergency Department; When: As needed; Reason: Worsening of condition. Follow up: Private Physician; When: 2 - 3 days; Reason: Recheck today's complaints, Continuance of care, Re-evaluation by your physician. - Problem is new. - Symptoms have improved. Signatures: Dispatcher [employer] EDMS Lester Cobb MD MD [facility] Jam Womack NP DNA SEQUENCING ASSOCIATE pm1 Isa Rdz RN RN Sandra Mccray RN RN ls4 Corrections: (The following items were deleted from the chart) 16:07 12:47 10/08/2018 12:47 Discharged to Home. Impression: Cutaneous abscess of left upper hb limb. Condition is Stable. Forms are Medication Reconciliation Form, Thank You Letter, Antibiotic Education, Prescription Opioid Use. Follow up: Emergency Department; When: As needed; Reason: Worsening of condition. Follow up: Private Physician; When: 2 - 3 days; Reason: Recheck today's complaints, Continuance of care, Re-evaluation by your physician. Problem is new. Symptoms have improved. pm1
--- NOTE | 2018-10-08 12:47 | ER ---
Nurse's Notes [facility] Name: Mya Newman Age: 28 yrs Sex: Female : 1990 Arrival Date: 10/08/2018 Time: 07:37 Bed 18 Private MD: Diagnosis: Cutaneous abscess of left upper limb Presentation: 10/08 07:39 Presenting complaint: Patient states: Was here last week for arm abscess, couldn't fill ls4 prescriptions. called 911 cause I've had fevers and Im sick. Transition of care: patient was not received from another setting of care. Onset of symptoms is unknown. Risk Assessment: Do you want to hurt yourself or someone else? Patient reports no desire to harm self or others. Initial Sepsis Screen: Does the patient meet any 2 criteria? Mean Arterial Pressure (MAP) < 65. No. Patient's initial sepsis screen is negative. Does the patient have a suspected source of infection? Yes: Skin breakdown/wound. Care prior to arrival: None. 07:39 Method Of Arrival: EMS: [facility] 07:39 Acuity: BECKI 3 4 Triage Assessment: 07:44 General: Appears slender, unkempt, Behavior is cooperative, flat, fussy. 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 Historical: - Allergies: 07:44 Amoxicillin; ls4 - Home Meds: 07:44 None [Active]; ls4 - PMHx: 07:44 Anemia; Hepatitis; ls4 - PSHx: 07:44 Tonsillectomy; ls4 - Immunization history:: Adult Immunizations unknown, Last tetanus immunization: unknown. - Social history:: Smoking status: Patient/guardian denies using tobacco, Patient uses street drugs, Methamphetamine (Meth) IV drugs, amphetamines, The [place], No barriers to communication noted, The patient speaks fluent Taiwanese. - Ebola Screening: : Patient negative for fever greater than or equal to 101.5 degrees Fahrenheit, and additional compatible Ebola Virus Disease symptoms Patient denies exposure to infectious person Patient denies travel to an Ebola-affected area in the 21 days before illness onset No symptoms or risks identified at this time. Screenin:25 Abuse screen: Denies threats or abuse. Denies injuries from another. Nutritional hb screening: No deficits noted. Tuberculosis screening: No symptoms or risk factors identified. Fall Risk None identified. Assessment: 08:00 General: Appears in no apparent distress. uncomfortable, Behavior is cooperative. Pain: hb Pain currently is 10 out of 10 on a pain scale. Neuro: Level of Consciousness is obeys commands, lethargic, Oriented to person, place, time, situation. Cardiovascular: Capillary refill < 3 seconds Patient's skin is warm and dry. Respiratory: Airway is patent Respiratory effort is even, unlabored, Respiratory pattern is regular, symmetrical. GI: No signs and/or symptoms were reported involving the gastrointestinal system. : No signs and/or symptoms were reported regarding the genitourinary system. EENT: No signs and/or symptoms were reported regarding the EENT system. Derm: Abscess located on left wrist is golf ball sized, has no drainage, is hot to touch, is red, is raised. 09:00 Reassessment: Patient appears in no apparent distress at this time. Patient and/or hb family updated on plan of care and expected duration. Pain level reassessed. Patient is alert, oriented x 3, equal unlabored respirations, skin warm/dry/pink. 10:00 Reassessment: Patient appears in no apparent distress at this time. Patient and/or hb family updated on plan of care and expected duration. Pain level reassessed. Patient is alert, oriented x 3, equal unlabored respirations, skin warm/dry/pink. 11:00 Reassessment: Patient appears in no apparent distress at this time. Patient and/or hb family updated on plan of care and expected duration. Pain level reassessed. Patient is alert, oriented x 3, equal unlabored respirations, skin warm/dry/pink. 11:51 Reassessment: Patient appears in no apparent distress at this time. No changes from previously documented assessment. Patient and/or family updated on plan of care and expected duration. Pain level reassessed. Patient is alert, oriented x 3, equal unlabored respirations, skin warm/dry/pink. 12:45 Reassessment: Patient appears in no apparent distress at this time. Patient and/or hb family updated on plan of care and expected duration. Pain level reassessed. Patient is alert, oriented x 3, equal unlabored respirations, skin warm/dry/pink. 13:19 Reassessment: Pt stated "I can't walk or leave yet, my body hurts from sleeping on the hb ground, I need to sleep a few more minutes please" TAYLOR Polk aware. 13:40 Reassessment: Discharge ordered, pt unable to ambulate to bus due to nausea and hb subjective weakness/all over body pain. TAYLOR Polk aware. 14:15 Reassessment: Pt refuging to get out of bed due to pain and "feeling too sleepy and hb hurting too much to walk right now." TAYLOR Polk and Charge Nurse Mansi SUMMERS notified. Vital Signs: 07:44 BP 90 / 48; Pulse 73; Resp 14; Temp 97.6; Pulse Ox 98% on R/A; Weight 56.7 kg; Height 5 ls4 ft. 2 in. (157.48 cm); Pain 8/10; 09:00 BP 90 / 50; Pulse 71; Resp 14; Pulse Ox 100% on R/A; hb 10:00 BP 94 / 59; Pulse 70; Resp 15; Pulse Ox 100% on R/A; hb 10:30 BP 108 / 68; Pulse 81; Resp 15; Pulse Ox 100% on R/A; hb 12:00 BP 100 / 69; Pulse 68; Resp 14; Pulse Ox 100% on R/A; Pain 8/10; hb 13:00 BP 102 / 68; Pulse 66; Resp 15; Pulse Ox 100% on R/A; hb 14:00 BP 106 / 70; Pulse 65; Resp 14; Temp 97.8; Pulse Ox 100% on R/A; hb 07:44 Body Mass Index 22.86 (56.70 kg, 157.48 cm) ls4 ED Course: 07:37 Patient arrived in ED. ls4 07:38 Isa Rdz, KRISTOPHER is Primary Nurse. hb 07:39 Jam Womack NP is PHCP. pm1 07:39 Lester Cobb MD is Attending Physician. pm1 07:42 Triage completed. ls4 07:44 Arm band placed on. ls4 08:00 Patient has correct armband on for positive identification. Bed in low position. Call light in reach. Side rails up X 1. 08:22 Inserted saline lock: 22 gauge in right forearm, using aseptic technique. dh3 08:32 Initial lab(s) drawn, by me, sent to lab. First set of blood cultures drawn by me. dh3 Inserted saline lock: 22 gauge in left antecubital area, using aseptic technique. Blood collected. 08:48 Second set of blood cultures drawn by me. dh3 14:16 Urine collected: hat, clear. dh3 14:58 No provider procedures requiring assistance completed. IV discontinued, intact, hb bleeding controlled, No redness/swelling at site. Pressure dressing applied. 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 Exp: hb 07/12/2020. Lot #: [id number]. } Route: IM; Site: right deltoid; 08:55 Follow up: Response: No adverse reaction hb 08:39 Drug: NS 0.9% 1000 ml Route: IV; Rate: 1000 ml; Site: left antecubital; hb 10:00 Follow up: Response: No adverse reaction; IV Status: Completed infusion; IV Intake: hb 1000ml 10:54 Drug: TORadol 30 mg Route: IVP; Site: left antecubital; hb 11:40 Follow up: Response: No adverse reaction hb 12:41 Drug: Lidocaine (1 %) 5 ml {Note: Administered by TAYLOR Polk.} Volume: 5 ml; Route: hb Infiltration; 13:02 Drug: morphine 4 mg Route: IVP; Site: left antecubital; hb 14:44 Drug: Bactrim (160 mg-800 mg (DS) 1 tablet Route: PO; hb 14:44 Drug: Clindamycin 600 mg Route: IM; Site: Other; hb Intake: 10:00 IV: 1000ml; Total: 1000ml. hb Outcome: 12:47 Discharge ordered by . pm1 14:58 Discharged to home ambulatory. hb 14:58 Condition: stable 14:58 Discharge instructions given to patient, Instructed on discharge instructions, follow up and referral plans. medication usage, wound care, Demonstrated understanding of instructions, follow-up care, medications, wound care, Prescriptions given X 2. 16:07 Patient left the ED. hb Signatures: Jam Womack, TAYLOR EFFICIENCY MINER BLASTING pm1 Isa Rdz RN RN [place] 3 Sandra Mccray RN RN ls4 Corrections: (The following items were deleted from the chart) 18:44 14:30 Reassessment: Pt refuging to get out of bed due to pain and "feeling too sleepy hb and hurting too much to walk right now." TAYLOR Polk and Charge Nurse Mansi SUMMERS notified. hb
[2018-10-08] MEDS ORDERED: MORPHINE 4 MG/ML SYR ONE (13:15)
[2018-10-08] MEDS ORDERED: ONDANSETRON 4 MG (ODT) TAB ONE (14:10)
[2018-10-08] MEDS ORDERED: SMZ./TMP. 800/160 MG TABLET ONE (14:55)
[2018-10-08] MEDS ORDERED: CLINDAMYCIN IV 150 MG/ML (4 mL) VIAL ONE (14:55)
== END 2018-10-08 16:07 | disposition home or self-care (01) ==
LOC: ER 07:33
PROC: 0J9H0ZZ Drainage of Left Lower Arm Subcutaneous Tissue and Fascia, Open Approach (ICD-10-PCS; principal; 2018-10-08)
DX: L02.414 Cutaneous abscess of left upper limb (principal); Z88.1 Allergy status to other antibiotic agents; D64.9 Anemia, unspecified; Z59.0 Homelessness; Z23 Encounter for immunization
CPT/HCPCS: 36415; 80048; 80076; 83605; 84145; 85025; 87040; 87070; 87077; 87186; 87205; 90471; 90714; 96361; 96372; 96374; 96375; 99284; J7030; S0077

== ENCOUNTER 2018-10-09 03:15 | Emergency (ER) | payer SELFPAY ==
[2018-10-09 04:00] LABS: Absolute Lymphocytes (CBC) 0.6 K/uL (0.7-4.9); Basophils % 0.3 % (0-1.3); Hematocrit 26.3 % (36.0-45.0); Lymphocytes % 8.6 % (15.3-44.8); MPV 8.8 fL (7.6-11.3); Monocytes % 4.7 % (3.3-12.3); Protime INR 1.35; RBC Red Blood Cell Count 3.04 M/uL (3.86-4.86)
[2018-10-09] MEDS ORDERED: ONDANSETRON 4 MG/2 ML VIAL ONE (04:10)
[2018-10-09] MEDS ORDERED: FENTANYL CITR 100 MCG/2 ML ONE ×2 (04:10→08:46)
[2018-10-09] MEDS ORDERED: NA CHLORIDE 0.9% 1,000 ML ONE ×3 (04:10→08:46)
[2018-10-09 04:11] LABS: ALT/SGPT 28 U/L (12-78); AST/SGOT 27 U/L (15-37); Albumin 1.9 g/dL (3.4-5.0); Alkaline Phosphatase 142 U/L (45-117); BUN Blood Urea Nitrogen 7 mg/dL (7-18); Bicarbonate 30 mmol/L (21-32); Bilirubin Direct 0.3 mg/dL (0-0.2); Bilirubin Total 0.5 mg/dL (0.2-1.0); Glucose Level 108 mg/dL (74-106); Magnesium 1.6 mg/dL (1.8-2.4); NT PRO-BNP 744 pg/mL (<125); Potassium 3.6 mmol/L (3.5-5.1); Sodium Level 131 mmol/L (136-145); Troponin (Emerg Dept Use Only) < 0.02 ng/mL (0.0-0.045)
[2018-10-09] MEDS ORDERED: CEFEPIME 1 GM/100 ML BAG IV ONE (04:26)
[2018-10-09] MEDS ORDERED: VANCOMYCIN 1 GM/VIAL ONE (04:37)
[2018-10-09] MEDS ORDERED: NA CHLORIDE 0.9% 250 ML ONE (04:37)
[2018-10-09 04:47] LABS: Barbiturates NEGATIVE (NEGATIVE); Benzodiazepines NEGATIVE (NEGATIVE); Cocaine NEGATIVE (NEGATIVE); METHAMPHETAM NEGATIVE (NEGATIVE); Methadone NEGATIVE (NEGATIVE); Opiates NEGATIVE (NEGATIVE); Phencyclidine NEGATIVE (NEGATIVE); THC Cannibis POSITIVE (NEGATIVE)
[2018-10-09] MEDS ORDERED: ACETAMINOPHEN 325 MG TABLET ONE (04:54)
--- NOTE | 2018-10-09 05:02 | EDPHYS ---
Physician Documentation [facility] Name: Mya Newman Age: 28 yrs Sex: Female : 1990 Arrival Date: 10/09/2018 Time: 03:18 Bed 8 Private MD: ED Physician Demario Floyd HPI: 10/09 03:46 This 28 yrs old Female presents to ER via EMS with complaints of Back Pain. gary 03:46 The patient presents with pain that is acute, and decreased range of motion. The gary symptoms are located in the low back. Onset: The symptoms/episode began/occurred 1 week(s) ago. The pain radiates to the lumbar area, left low back and left mid back. Associated signs and symptoms: Pertinent positives: fever. The problem was sustained from unknown cause. Modifying factors: The patient symptoms are alleviated by nothing, remaining still, the patient symptoms are aggravated by movement, standing, walking. Severity of symptoms: At their worst the symptoms were moderate, in the emergency department the symptoms are unchanged. 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 - Social history:: Smoking status: Patient/guardian denies using tobacco, Patient uses street drugs, Methamphetamine (Meth). - Ebola Screening: : Patient negative for fever greater than or equal to 101.5 degrees Fahrenheit, and additional compatible Ebola Virus Disease symptoms Patient denies exposure to infectious person Patient denies travel to an Ebola-affected area in the 21 days before illness onset. ROS: 03:48 Constitutional: Negative for fever, chills, and weight loss, Eyes: Negative for injury, gary pain, redness, and discharge, ENT: Negative for injury, pain, and discharge, Neck: Negative for injury, pain, and swelling, Cardiovascular: Negative for chest pain, palpitations, and edema, Respiratory: Negative for shortness of breath, cough, wheezing, and pleuritic chest pain, Abdomen/GI: Negative for abdominal pain, nausea, vomiting, diarrhea, and constipation, : Negative for injury, bleeding, discharge, and swelling, Skin: Negative for injury, rash, and discoloration, Neuro: Negative for headache, weakness, numbness, tingling, and seizure, Psych: Negative for depression, anxiety, suicide ideation, homicidal ideation, and hallucinations, Allergy/Immunology: Negative for hives, rash, and allergies, Endocrine: Negative for neck swelling, polydipsia, polyuria, polyphagia, and marked weight changes, Hematologic/Lymphatic: Negative for swollen nodes, abnormal bleeding, and unusual bruising. 03:48 Back: Positive for decreased range of motion, pain at rest, pain with movement, radiated pain, of the lumbar area, left low back and left mid back. 03:48 MS/extremity: Positive for decreased range of motion, pain, tenderness, of the anterior aspect of right shoulder and posterior aspect of right shoulder. Exam: 03:48 Constitutional: This is a well developed, well nourished patient who is awake, alert, gary and in no acute distress. Head/Face: Normocephalic, atraumatic. Eyes: Pupils equal round and reactive to light, extra-ocular motions intact. Lids and lashes normal. Conjunctiva and sclera are non-icteric and not injected. Cornea within normal limits. Periorbital areas with no swelling, redness, or edema. ENT: Nares patent. No nasal discharge, no septal abnormalities noted. Tympanic membranes are normal and external auditory canals are clear. Oropharynx with no redness, swelling, or masses, exudates, or evidence of obstruction, uvula midline. Mucous membranes moist. Neck: Trachea midline, no thyromegaly or masses palpated, and no cervical lymphadenopathy. Supple, full range of motion without nuchal rigidity, or vertebral point tenderness. No Meningismus. Chest/axilla: Normal chest wall appearance and motion. Nontender with no deformity. No lesions are appreciated. Cardiovascular: Regular rate and rhythm with a normal S1 and S2. No gallops, murmurs, or rubs. Normal PMI, no JVD. No pulse deficits. Respiratory: Lungs have equal breath sounds bilaterally, clear to auscultation and percussion. No rales, rhonchi or wheezes noted. No increased work of breathing, no retractions or nasal flaring. Abdomen/GI: Soft, non-tender, with normal bowel sounds. No distension or tympany. No guarding or rebound. No evidence of tenderness throughout. Female : Normal external genitalia. Neuro: Awake and alert, GCS 15, oriented to person, place, time, and situation. Cranial nerves II-XII grossly intact. Motor strength 5/5 in all extremities. Sensory grossly intact. Cerebellar exam normal. Normal gait. Psych: Awake, alert, with orientation to person, place and time. Behavior, mood, and affect are within normal limits. 03:48 Back: pain, that is moderate, ROM is painful, normal spinal alignment noted, CVA tenderness, is absent, muscle spasm, is not present. Vital Signs: 03:19 BP 87 / 62; Pulse 114; Resp 18; Temp 99.1(O); Pulse Ox 96% on R/A; Weight 54.43 kg (R); fc Height 5 ft. 2 in. (157.48 cm) (R); Pain 10/10; 04:17 BP 87 / 48; Pulse 101; Resp 18; Pulse Ox 100% on 2 lpm NC; ak1 04:32 Temp 102.2(O); oe 04:32 BP 92 / 59; Pulse 105; Resp 18 S; Pulse Ox 100% on R/A; bb 05:25 BP 80 / 43; Pulse 106; Resp 18; Pulse Ox 97% on R/A; ak1 05:27 Temp 101.0(O); ak1 06:10 BP 90 / 59; Pulse 107; Pulse Ox 96% on R/A; ak1 06:18 BP 103 / 53; Pulse 94; Resp 16 S; Temp 98.8(O); Pulse Ox 97% on R/A; bb 07:00 BP 106 / 76; Pulse 86; Resp 14; Pulse Ox 96% ; bp 08:00 BP 86 / 72; Pulse 98; Resp 16; Temp 98.7; Pulse Ox 95% ; bp 03:19 Body Mass Index 21.95 (54.43 kg, 157.48 cm) Procedures: 04:40 Peripheral line: by aseptic technique a peripheral line was placed in the left external gary jugular vein. MDM: 03:[address] [facility] 03:50 Data reviewed: vital signs, nurses notes, lab test result(s), EKG, radiologic studies, [facility] CT scan, plain films. 10/09 03:42 Order name: Basic Metabolic Panel [facility] 10/09 03:42 Order name: CBC with Diff [facility] 10/09 03:42 Order name: LFT's [facility] 10/09 03:42 Order name: Magnesium [facility] 10/09 03:42 Order name: NT PRO-BNP [facility] 10/09 03:42 Order name: PT-INR [facility] 10/09 03:42 Order name: Troponin (emerg Dept Use Only) [facility] 10/09 03:42 Order name: Blood Culture Adult (2) [facility] 10/09 03:42 Order name: Sed Rate [facility] 10/09 03:42 Order name: Procalcitonin [facility] 10/09 03:42 Order name: Lactate; Complete Time: 04:36 [facility] 10/09 03:42 Order name: ETOH Level; Complete Time: 04:36 [facility] 10/09 03:42 Order name: Ptt, Activated; Complete Time: 04:36 [facility] 10/09 03:42 Order name: Salicylate; Complete Time: 04:36 [facility] 10/09 03:42 Order name: Urine Drug Screen; Complete Time: 05:05 [facility] 10/09 03:45 Order name: Basic Metabolic Panel; Complete Time: 04:36 [facility] 10/09 03:45 Order name: CBC with Automated Diff; Complete Time: 05:13 [facility] 10/09 03:45 Order name: Liver (Hepatic) Function; Complete Time: 04:36 [facility] 10/09 03:43 Order name: AMMONIA; Complete Time: 04:51 [facility] 10/09 03:46 Order name: Magnesium; Complete Time: 04:36 [facility] 10/09 03:46 Order name: NT PRO-BNP; Complete Time: 04:36 [facility] 10/09 03:46 Order name: Protime (+INR); Complete Time: 04:36 [facility] 10/09 03:46 Order name: Troponin (Emerg Dept Use Only); Complete Time: 04:36 [facility] 10/09 03:46 Order name: Blood Culture [facility] 10/09 03:46 Order name: Sedimentation Rate, Westergren; Complete Time: 05:13 [facility] 10/09 03:46 Order name: Procalcitonin; Complete Time: 05:05 [facility] 10/09 03:54 Order name: Acetaminophen Level; Complete Time: 04:36 [facility] 10/09 04:02 Order name: Manual Differential; Complete Time: 05:13 [facility] 10/09 04:18 Order name: Urine Dipstick--Ancillary (enter results) ar5 10/09 03:42 Order name: XRAY Chest (1 view) [facility] 10/09 03:42 Order name: EKG; Complete Time: 03:47 [facility] 10/09 03:42 Order name: Cardiac monitoring; Complete Time: 04:16 [facility] 10/09 03:42 Order name: EKG - Nurse/Tech; Complete Time: 04:16 [facility] 10/09 03:42 Order name: IV Saline Lock; Complete Time: 03:48 [facility] 10/09 03:42 Order name: Labs collected and sent; Complete Time: 03:48 [facility] 10/09 03:42 Order name: O2 Per Protocol; Complete Time: 03:48 [facility] 10/09 03:42 Order name: O2 Sat Monitoring; Complete Time: 03:49 [facility] 10/09 03:42 Order name: CT Chest, Abdomen, Pelvis - W/Contrast [facility] 10/09 03:42 Order name: Urine Dipstick-Ancillary (obtain specimen); Complete Time: 04:15 [facility] 10/09 03:42 Order name: Urine Test (obtain specimen); Complete Time: 04:16 [facility] 10/09 03:46 Order name: Shoulder Right (2 View) XRAY [facility] 10/09 04:18 Order name: Urine --Ancillary (enter results) ar5 Administered Medications: 04:01 Drug: NS 0.9% 1000 ml Route: IV; Rate: 1 bolus; Site: left jugular; bb 05:00 Follow up: IV Status: Completed infusion; IV Intake: 1000ml bp 04:02 Drug: fentaNYL (PF) 25 mcg Route: IVP; Site: left jugular; bb 04:15 Follow up: Response: Pain is decreased bb 04:02 Drug: Zofran 4 mg Route: IVP; Site: left jugular; bb 04:16 Follow up: Response: No adverse reaction bb 04:03 Drug: fentaNYL (PF) 25 mcg Route: IVP; Site: left jugular; bb 04:15 Follow up: Response: Pain is decreased bb 04:03 CANCELLED (Duplicate Order): NS 0.9% 1000 ml IV at 1 bolus Per protocol; 1000 mL bolus bb 04:13 Drug: Cefepime 1 grams Route: IVPB; Rate: 200 ml/hr; Infused Over: 30 mins; Site: left bb jugular; 04:43 Follow up: IV Status: Completed infusion; IV Intake: 100ml bb 04:15 Drug: NS 0.9% 1000 ml Route: IV; Rate: 125 ml/hr; Site: left jugular; ak1 08:08 Follow up: IV Status: Infusion continued upon transfer bp 04:39 Drug: Tylenol 650 mg Route: PO; bb 05:26 Follow up: Response: No adverse reaction ak1 04:43 Drug: vancoMYCIN 1 grams Route: IVPB; Infused Over: 2 hrs; Site: left jugular; bb 08:06 Follow up: IV Status: Completed infusion bp 04:53 Drug: Magnesium Sulfate 1 grams Route: IVPB; Infused Over: 1 hrs; Site: left jugular; bb 06:20 Follow up: IV Status: Completed infusion; IV Intake: 100ml bb 08:00 Drug: Cefepime 1 grams {Note: RECD FROM PHARMACY AT 0745.} Route: IVPB; Rate: 200 bp ml/hr; Infused Over: 30 mins; Site: left jugular; Disposition: 10/09/18 05:00 Transfer ordered to [facility]. Diagnosis are Pneumonia due to other specified bacteria - multifocal, Fever, unspecified, Abuse of non-psychoactive substances - IVDA, Anemia, unspecified, Malaise and fatigue, Bandemia, Low back pain. - Reason for transfer: Higher level of care. - Accepting physician is to [facility]. - Condition is Serious. - Problem is new. - Symptoms have improved. Signatures: Dispatcher [employer] EDMS Demario Floyd MD MD cha Chretien, Felicia, RN RN Daylin Hennessy RN RN Erica Fajardo RN RN ak1 Vijay Ca RN RN bp Corrections: (The following items were deleted from the chart) 03:52 03:47 ACETAMINOPHEN+C.LAB.BRZ ordered. ED[facility] EDMS 04:03 04:01 NS 0.9% 1000 ml IV at 1 bolus Per protocol; 1000 mL bolus ordered. steven harris 05:05 05:00 10/09/2018 05:00 Transfer ordered to [facility]. Diagnosis is Pneumonia due gary to other specified bacteria - multifocal; Fever, unspecified; Abuse of non-psychoactive substances - IVDA; Anemia, unspecified; Malaise and fatigue. Reason for transfer: Higher level of care. Accepting physician is to [facility]. Condition is Serious. Problem is new. Symptoms have improved. [facility] 05:12 05:05 10/09/2018 05:00 Transfer ordered to [facility]. Diagnosis is Pneumonia due gary to other specified bacteria - multifocal; Fever, unspecified; Abuse of non-psychoactive substances - IVDA; Anemia, unspecified; Malaise and fatigue; Bandemia. Reason for transfer: Higher level of care. Accepting physician is to [facility]. Condition is Serious. Problem is new. Symptoms have improved. [facility] 09:19 05:12 10/09/2018 05:00 Transfer ordered to [facility]. Diagnosis is Pneumonia due bp to other specified bacteria - multifocal; Fever, unspecified; Abuse of non-psychoactive substances - IVDA; Anemia, unspecified; Malaise and fatigue; Bandemia; Low back pain. Reason for transfer: Higher level of care. Accepting physician is to [facility]. Condition is Serious. Problem is new. Symptoms have improved. [facility]
--- NOTE | 2018-10-09 05:02 | ER ---
Nurse's Notes [facility] Name: Mya Newman Age: 28 yrs Sex: Female : 1990 Arrival Date: 10/09/2018 Time: 03:18 Bed 8 Private MD: Diagnosis: Pneumonia due to other specified bacteria-multifocal;Fever, unspecified;Abuse of non-psychoactive substances-IVDA;Anemia, unspecified;Malaise and fatigue;Bandemia;Low back pain Presentation: 10/09 03:19 Presenting complaint: EMS states: that they were toned for pt having back pain that is fc radiating down her legs. Was here yesterday for abscess to wrist and was told to return if back pain got worse. Transition of care: Clyde Daley. Onset of symptoms was October 08, 2018. Risk Assessment: Do you want to hurt yourself or someone else? Patient reports no desire to harm self or others. Initial Sepsis Screen: Does the patient meet any 2 criteria? Systolic BP < 90 mmHg. HR > 90 bpm. Yes Does the patient have a suspected source of infection? No. Patient's initial sepsis screen is negative. Care prior to arrival: None. 03:19 Method Of Arrival: EMS: [facility] 03:19 Acuity: BECKI 3 fc Triage Assessment: 07:00 General: Appears distressed, uncomfortable, ill, Behavior is appropriate for age, bp anxious. Musculoskeletal: Reports weakness in GENERALIZED. 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 - Social history:: Smoking status: Patient/guardian denies using tobacco, Patient uses street drugs, Methamphetamine (Meth). - Ebola Screening: : Patient negative for fever greater than or equal to 101.5 degrees Fahrenheit, and additional compatible Ebola Virus Disease symptoms Patient denies exposure to infectious person Patient denies travel to an Ebola-affected area in the 21 days before illness onset. Screenin:18 Abuse screen: Denies threats or abuse. Nutritional screening: No deficits noted. bb Tuberculosis screening: No symptoms or risk factors identified. Fall Risk None identified. Assessment: 03:18 General: Appears uncomfortable, slender, unkempt, Behavior is agitated, anxious, bb Reports left sided back pain radiating down left leg. Pain: Complains of pain in left lower back pain Pain radiates to left leg. Neuro: Level of Consciousness is awake, alert, obeys commands, Oriented to person, place, time, situation. Cardiovascular: Heart tones S1 S2 present Capillary refill < 3 seconds Patient's skin is warm and dry. Respiratory: Respiratory effort is even, unlabored, Respiratory pattern is regular. GI: No signs and/or symptoms were reported involving the gastrointestinal system. Derm: Skin is pink, warm \T\ dry. Musculoskeletal: Circulation, motion, and sensation intact. Reports pain in back. 04:16 Reassessment: pt resting quietly, appears less agitated, anxious, pain is decreased, IV bb site intact, patent with fluids infusing. 05:24 Reassessment: pt returned from CT. pt asking for pain medications, ERP notified with no ak1 new orders at this time. ERP notified of pt vital signs at this time. 06:17 Reassessment: pt requesting bed bustillo and was provided with one pt voided clear yellow bb urine. Pt is A\T\O x 4, resp unlabored, IV site intact, patent, with fluids infusing, awaiting transfer. 07:00 Reassessment: RECD REPORT FROM ERICA SUMMERS. 28YO WF P/W SEPTIC EMBOLI AND MULTIFOCAL bp PNEUMONIA. [facility] TRANSFER PENDING. ABX INFUSING, PT REMAINS HYPOTENSIVE ON MONITOR. 08:00 Reassessment: NURSE UNAVAILABLE AT RECEIVING FACILITY, CALL BACK PENDING. bp 08:26 Reassessment: REPORT TO BERENICE SUMMERS AT [facility] [address]. bp 08:41 Reassessment: EMS AT B/S FOR TRANSPORT. bp Vital Signs: 03:19 BP 87 / 62; Pulse 114; Resp 18; Temp 99.1(O); Pulse Ox 96% on R/A; Weight 54.43 kg (R); fc Height 5 ft. 2 in. (157.48 cm) (R); Pain 10/10; 04:17 BP 87 / 48; Pulse 101; Resp 18; Pulse Ox 100% on 2 lpm NC; ak1 04:32 Temp 102.2(O); oe 04:32 BP 92 / 59; Pulse 105; Resp 18 S; Pulse Ox 100% on R/A; bb 05:25 BP 80 / 43; Pulse 106; Resp 18; Pulse Ox 97% on R/A; ak1 05:27 Temp 101.0(O); ak1 06:10 BP 90 / 59; Pulse 107; Pulse Ox 96% on R/A; ak1 06:18 BP 103 / 53; Pulse 94; Resp 16 S; Temp 98.8(O); Pulse Ox 97% on R/A; bb 07:00 BP 106 / 76; Pulse 86; Resp 14; Pulse Ox 96% ; bp 08:00 BP 86 / 72; Pulse 98; Resp 16; Temp 98.7; Pulse Ox 95% ; bp 03:19 Body Mass Index 21.95 (54.43 kg, 157.48 cm) ED Course: 03:18 Patient arrived in ED. ds1 03:18 Patient has correct armband on for positive identification. Bed in low position. Call bb light in reach. Side rails up X2. Pulse ox on. NIBP on. Warm blanket given. 03:18 Arm band placed on Patient placed in an exam room, on a stretcher. fc 03:22 Triage completed. fc 03:24 Demario Floyd MD is Attending Physician. gary 03:35 Initial lab(s) drawn, by ED staff, sent to lab. Inserted saline lock: 18 gauge in left bb EJ, using aseptic technique. ,using aseptic technique. by Dr Floyd Blood collected. 04:03 Erica Fajardo, KRITSOPHER is Primary Nurse. ak1 04:14 XRAY Chest (1 view) In Process Unspecified. EDMS 04:14 Shoulder Right (2 View) XRAY In Process Unspecified. EDMS 05:30 CT Chest, Abdomen, Pelvis - W/Contrast In Process Unspecified. EDMS 05:38 CT completed. Pt tolerated procedure poorly. Patient moved to CT via stretcher. Patient eh moved back from CT. 06:15 Assisted with bedpan. bb 07:48 Primary Nurse role handed off by Erica Fajardo, RN bp 07:48 Vijay Ca, KRISTOPHER is Primary Nurse. bp 08:09 No provider procedures requiring assistance completed. Patient transferred, IV remains bp in place. 08:15 PO fluids given. cranberry juice. em1 Administered Medications: 04:01 Drug: NS 0.9% 1000 ml Route: IV; Rate: 1 bolus; Site: left jugular; bb 05:00 Follow up: IV Status: Completed infusion; IV Intake: 1000ml bp 04:02 Drug: fentaNYL (PF) 25 mcg Route: IVP; Site: left jugular; bb 04:15 Follow up: Response: Pain is decreased bb 04:02 Drug: Zofran 4 mg Route: IVP; Site: left jugular; bb 04:16 Follow up: Response: No adverse reaction bb 04:03 Drug: fentaNYL (PF) 25 mcg Route: IVP; Site: left jugular; bb 04:15 Follow up: Response: Pain is decreased bb 04:03 CANCELLED (Duplicate Order): NS 0.9% 1000 ml IV at 1 bolus Per protocol; 1000 mL bolus bb 04:13 Drug: Cefepime 1 grams Route: IVPB; Rate: 200 ml/hr; Infused Over: 30 mins; Site: left bb jugular; 04:43 Follow up: IV Status: Completed infusion; IV Intake: 100ml bb 04:15 Drug: NS 0.9% 1000 ml Route: IV; Rate: 125 ml/hr; Site: left jugular; ak1 08:08 Follow up: IV Status: Infusion continued upon transfer bp 04:39 Drug: Tylenol 650 mg Route: PO; bb 05:26 Follow up: Response: No adverse reaction ak1 04:43 Drug: vancoMYCIN 1 grams Route: IVPB; Infused Over: 2 hrs; Site: left jugular; bb 08:06 Follow up: IV Status: Completed infusion bp 04:53 Drug: Magnesium Sulfate 1 grams Route: IVPB; Infused Over: 1 hrs; Site: left jugular; bb 06:20 Follow up: IV Status: Completed infusion; IV Intake: 100ml bb 08:00 Drug: Cefepime 1 grams {Note: RECD FROM PHARMACY AT 0745.} Route: IVPB; Rate: 200 bp ml/hr; Infused Over: 30 mins; Site: left jugular; Intake: 04:43 IV: 100ml; Total: 100ml. bb 05:00 IV: 1000ml; Total: 1100ml. bp 06:20 IV: 100ml; Total: 1200ml. bb Outcome: 05:00 ER care complete, transfer ordered by MD. vega 06:20 Instructed on the need for transfer. bb 08:26 Transferred by ground EMS to [facility], Transfer form bp completed. 08:26 Condition: stable 09:19 Patient left the ED. bp Addendum: 10/11/2018 08:40 Addendum: Culture Results: Positive blood culture. Positive wound culture. Phone call i w Attempt #1 faxed culture report to [facility] . Signatures: Dispatcher [employer] EDMS Demario Floyd MD MD cha Hagler, Ervin eh Chretien, Felicia, RN RN Amira Prieto ds1 Daylin Hennessy RN RN Seble Arndt, Sai Young RN em1 Erica Fajardo RN RN ak1 Alex Maloney Brian RN RN bp Corrections: (The following items were deleted from the chart) 10/09 03:24 03:19 Acuity: BECKI 4 fc 03:53 03:19 Initial Sepsis Screen: Does the patient meet any 2 criteria? HR > 90 bpm. Yes fc Does the patient have a suspected source of infection? No. Patient's initial sepsis screen is negative. fc 08:45 08:00 BP 86 / 72; Pulse 98bpm; Resp 16bpm; Pulse Ox 95%; bp bp
[2018-10-09 05:05] LABS: Blood Morphology Comment NOT SEEN (NOT SEEN); Platelet Estimate ADEQ; Toxic Granulation 3+
[2018-10-09] MEDS ORDERED: MAGNESIUM SULFATE 1 gm IVPB 1 GM/100 ML BAG IV ONE (05:05)
[2018-10-09 05:32] LABS: Urine Blood TRACE (NEG); Urine Glucose NEGATIVE (NEG); Urine Protein 2+ (NEG); Urine Specific Gravity 1.015 (1.005-1.030)
[2018-10-09] MEDS ORDERED: CEFEPIME/SWI 1gm 10 ML IV ONE (07:30)
--- NOTE | 2018-10-09 07:32 | EKG ---
Test Date: 2018-10-09 Test Time: 03:57:08 Clinical Care Coordinator: ANN MEASUREMENT RESULTS: Intervals: Rate: 111 MA: 168 QRSD: 82 QT: 306 QTc: 416 [place]: P: 65 MA: 168 QRS: 63 T: 57 INTERPRETIVE STATEMENTS: Sinus tachycardia Nonspecific T wave abnormality Abnormal ECG Compared to ECG 10/02/2018 17:54:12 T-wave abnormality now present Electronically Signed On 10-09-18 07:32:09 CDT by Rojas Mcbride
[2018-10-09] MEDS ORDERED: NA CHLORIDE 0.9% 100 ML IV ONE (08:10)
--- NOTE | 2018-10-09 08:42 | RAD REPORT ---
EXAM DESCRIPTION: Shoulder Right 2 View - 10/09/2018 4:14 am CLINICAL HISTORY: Shoulder pain COMPARISON: None. TECHNIQUE: Internal and external rotation views of the right shoulder were obtained. FINDINGS: There is no fracture or dislocation. AC joint is normal in appearance. No acute or suspic ious findings. IMPRESSION: Negative two-view right shoulder examination.
--- NOTE | 2018-10-09 08:46 | RAD REPORT ---
EXAM DESCRIPTION: RAD - Chest Single View - 10/09/2018 4:15 am CLINICAL HISTORY: Chest pain COMPARISON: CT chest October 01 TECHNIQUE: AP portable chest image was obtained 0411 hours . FINDINGS: Lung volumes are low. Multiple focal areas of lung parenchymal opacification are present s cattered in both lung allen. This generally matches the CT chest study. No failure or volume overloa d. Infectious/inflammatory etiologies are favored. Findings may represent septic emboli. Neoplastic e tiologies unlikely given the patient's age. Heart and vasculature are normal. No measurable pleural e ffusion and no pneumothorax. No acute bony abnormality seen. No acute aortic findings suspected. IMPRESSION: Multiple focal opacities throughout both lung allen generally matching the October 01 CT s tudy. Infectious etiologies are favored. Findings may reflect septic emboli.
--- NOTE | 2018-10-09 10:49 | RAD REPORT ---
EXAM DESCRIPTION: CT - Chest Abdomen Pelvis W Cont - 10/09/2018 6:36 am CLINICAL HISTORY: The patient is 28 years old and is Female; back pain;Fever;Pain TECHNIQUE: Axial computed tomography images of the chest, abdomen and pelvis with intravenous contra st. Sagittal and coronal reformatted images were created and reviewed. This CT exam was performed using one or more of the following dose reduction techniques: automated exposure control, adjustme nt of the mA and/or kV according to patient size, and/or use of iterative reconstruction technique. COMPARISON: CT of the chest October 01, 2018. FINDINGS: CHEST: LUNGS: Multiple cavitary foci scattered throughout the lungs are present. PLEURAL SPACE: Trace pleural effusions are present. No pneumothorax. HEART: No cardiomegaly. No pericardial effusion. THYROID: Approximately 1.3 cm low attenuating nodule within the left lobe of thyroid is present. ABDOMEN: LIVER: The liver is mildly fatty. The liver is enlarged. GALLBLADDER AND BILE DUCTS: The gallbladder is contracted. PANCREAS: No ductal dilation. No mass. SPLEEN: Spleen is enlarged. ADRENALS: Unremarkable. No mass. KIDNEYS AND URETERS: Unremarkable. No hydronephrosis. No solid mass. STOMACH AND BOWEL: The stomach is distended with food contents. The small bowel is relatively no rmal in caliber. A moderate amount stool is present throughout colon. The sigmoid colon is decompress ed. There is no mucosal thickening or evidence of bowel obstruction. PELVIS: APPENDIX: The appendix is normal in caliber without surrounding inflammation. BLADDER: Unremarkable. No mass. REPRODUCTIVE: Unremarkable as visualized. CHEST, ABDOMEN and PELVIS: INTRAPERITONEAL SPACE: Free fluid is present within the pelvis which is likely physiologic. No free air. BONES/JOINTS: No acute fracture. SOFT TISSUES: The soft tissues are normal. VASCULATURE: Unremarkable. No aortic aneurysm. LYMPH NODES: Unremarkable. No enlarged lymph nodes. IMPRESSION: 1. Cavitary lesions throughout the lungs most suggestive of septic emboli. 2. Moderate stool burden without obstruction. 3. Left thyroid nodule. Recommend thyroid US. Reference: J Am Susie Radiol. 2015 May;12(2): 143-50 Electronically signed by: Shanon Valentine MD 10/09/2018 5:40 AM CDT Due to temporary technical issues with the PACS/Fluency reporting system, reports are being signed by the in house radiologist as a courtesy to ensure prompt reporting. The interpreting radiologist is f ully responsible for the content of the report.
== END 2018-10-09 09:19 | disposition short-term general hospital (02) ==
LOC: ER 03:15
PROC: 05HQ33Z Insertion of Infusion Device into Left External Jugular Vein, Percutaneous Approach (ICD-10-PCS; principal; 2018-10-09)
DX: J15.8 Pneumonia due to other specified bacteria (principal); F55.8 Abuse of other non-psychoactive substances; D64.9 Anemia, unspecified; D72.825 Bandemia; R53.81 Other malaise; R53.83 Other fatigue; M54.5 Low back pain; Z88.1 Allergy status to other antibiotic agents
CPT/HCPCS: 36415; 71045; 71260; 74177; 80048; 80076; 80307; 80320; 80329; 81003; 81025; 82140; 83605; 83735; 83880; 84145; 84484; 85025; 85610; 85652; 85730; 87040; 87077; 87186; 87205; 93005; 96365; 96366; 96367; 96368; 96375; 99285; J0692; J2405; J3010; J3475; J7030; Q9967

== ENCOUNTER 2019-08-13 17:04 | Emergency (ER) | payer SELFPAY ==
[2019-08-13] MEDS ORDERED: CEPHALEXIN 250 MG CAP ONE (18:03)
[2019-08-13] MEDS ORDERED: SMZ./TMP. 800/160 MG TABLET ONE (18:03)
[2019-08-13] MEDS ORDERED: LIDOCAINE 1% MPF 5 ML VIAL ONE (18:09)
--- NOTE | 2019-08-13 18:29 | EDPHYS ---
Physician Documentation [facility] Name: Mya Newman Age: 29 yrs Sex: Female : 1990 Arrival Date: 08/13/2019 Time: 17:06 Bed 8 Private MD: ED Physician Lester Cobb HPI: 08/12 17:57 This 29 yrs old Female presents to ER via Ambulatory with complaints of kb Vaginal Problem. 17:57 The patient presents with an abscess of the right labia majora. Description: kb erythematous, fluctuant, swollen, warm. Onset: The symptoms/episode began/occurred yesterday. Possible cause(s): unknown. Associated signs and symptoms: Pertinent positives: erythema, swelling. Modifying factors: the symptoms are alleviated by nothing, the symptoms are aggravated by squeezing the lesion and expressing the contents, touching. Severity of symptoms: At their worst the symptoms were moderate, in the emergency department the symptoms are unchanged. The patient has not experienced similar symptoms in the past. The patient has not recently seen a physician. 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 - Social history:: Smoking status: Patient denies any tobacco usage or history of. ROS: 17:56 Constitutional: Negative for fever, chills, and weight loss, Cardiovascular: Negative kb for chest pain, palpitations, and edema, Respiratory: Negative for shortness of breath, cough, wheezing, and pleuritic chest pain, Abdomen/GI: Negative for abdominal pain, nausea, vomiting, diarrhea, and constipation, MS/Extremity: Negative for injury and deformity, Neuro: Negative for headache, weakness, numbness, tingling, and seizure. 17:56 Skin: Positive for abscess, of the right labia majora. Exam: 17:56 Constitutional: This is a well developed, well nourished patient who is awake, alert, kb and in no acute distress. Head/Face: Normocephalic, atraumatic. Chest/axilla: Normal chest wall appearance and motion. Nontender with no deformity. No lesions are appreciated. Cardiovascular: Regular rate and rhythm with a normal S1 and S2. No gallops, murmurs, or rubs. Normal PMI, no JVD. No pulse deficits. Respiratory: Lungs have equal breath sounds bilaterally, clear to auscultation and percussion. No rales, rhonchi or wheezes noted. No increased work of breathing, no retractions or nasal flaring. Abdomen/GI: Soft, non-tender, with normal bowel sounds. No distension or tympany. No guarding or rebound. No evidence of tenderness throughout. MS/ Extremity: Pulses equal, no cyanosis. Neurovascular intact. Full, normal range of motion. Neuro: Awake and alert, GCS 15, oriented to person, place, time, and situation. Cranial nerves II-XII grossly intact. Motor strength 5/5 in all extremities. Sensory grossly intact. Cerebellar exam normal. Normal gait. 17:56 Skin: abscess, that is moderate sized, of the right labia majora, with fluctuance, with induration, with surrounding cellulitis. Vital Signs: 17:30 BP 121 / 90; Pulse 133; Resp 14; Temp 98.1(O); Pulse Ox 100% on R/A; Weight 63.5 kg; ls4 Height 5 ft. 2 in. (157.48 cm); Pain 4/10; 18:22 BP 122 / 94; Pulse 100; Resp 17 S; Pulse Ox 100% on R/A; ca1 17:30 Body Mass Index 25.61 (63.50 kg, 157.48 cm) ls4 Procedures: 18:22 I \\T\\ D: Incision and drainage was performed for an abscess of the right right labia kb majora Prepped with Betadine, Anesthetized with 1 ml's 1% Lidocaine. Incised with #11 blade. Drained moderate amount purulent fluid. Dressing: sterile 4x4 gauze, the patient tolerated the procedure poorly, Pt was very anxious. Pt crying before procedure saying "he thinks I'm cheating and this is from an std." Pt yelling during procedure, stating "I'm anticipating the pain." Pt asked multiple times prior to starting procedure if she wanted it done, she agreed. I asked pt if she wanted me to continue procedure a few times due to pt's yelling. Pt agreed to continue. Pt tolerated a small incision that drained a moderate amount of purulent drainage. Pt would not tolerate packing.. MDM: 17:26 Patient medically screened. kb 17:56 Data reviewed: vital signs, nurses notes. Data interpreted: Pulse oximetry: on room air kb is 100 %. Interpretation: normal. 18:27 Counseling: I had a detailed discussion with the patient and/or guardian regarding: the kb historical points, exam findings, and any diagnostic results supporting the discharge/admit diagnosis, the need for outpatient follow up, a family practitioner, to return to the emergency department if symptoms worsen or persist or if there are any questions or concerns that arise at home. 08/12 17:43 Order name: I\\T\\D Setup; Complete Time: 17:50 kb Administered Medications: 17:52 Drug: Bactrim (160 mg-800 mg (DS) 1 tablet Route: PO; ca1 18:10 Follow up: Response: No adverse reaction ls4 17:53 Drug: KeFLEX 500 mg Route: PO; ca1 18:10 Follow up: Response: No adverse reaction ls4 Disposition: 08/13/19 18:28 Discharged to Home. Impression: Cutaneous abscess of groin. - Condition is Stable. - Discharge Instructions: Skin Abscess, Xrgf-[id number], Incision and Drainage, Care After. - Prescriptions for Keflex 500 mg Oral Capsule - take 1 capsule by ORAL route every 8 hours for 10 days; 30 capsule. Bactrim DS 800- 160 mg Oral Tablet - take 1 tablet by ORAL route every 12 hours for 10 days; 20 tablet. - Medication Reconciliation Form, Thank You Letter, Antibiotic Education, Prescription Opioid Use form. - Follow up: Emergency Department; When: As needed; Reason: Worsening of condition. Follow up: Private Physician; When: 2 - 3 days; Reason: Recheck today's complaints, Continuance of care, Re-evaluation by your physician. Addendum: 08/17/2019 10:12 Co-signature as Attending Physician, Lester Cobb MD I agree with the assessment and k dr plan of care. Signatures: Roxie Brice, SOLAR THERMAL INSTALLER-C YULI-Ckb Lester Cobb MD MD [facility] Sandra Mccray RN RN ls4 Astrid Morales RN RN ca1 Corrections: (The following items were deleted from the chart) 08/12 18:49 18:28 08/13/2019 18:28 Discharged to Home. Impression: Cutaneous abscess of groin. ls4 Condition is Stable. Forms are Medication Reconciliation Form, Thank You Letter, Antibiotic Education, Prescription Opioid Use. Follow up: Emergency Department; When: As needed; Reason: Worsening of condition. Follow up: Private Physician; When: 2 - 3 days; Reason: Recheck today's complaints, Continuance of care, Re-evaluation by your physician. kb
--- NOTE | 2019-08-13 18:29 | ER ---
Nurse's Notes [facility] Name: Mya Newman Age: 29 yrs Sex: Female : 1990 Arrival Date: 08/13/2019 Time: 17:06 Bed 8 Private MD: Diagnosis: Cutaneous abscess of groin Presentation: 08/12 17:39 Chief complaint: Patient states: SWELLING IN VAGINAL AREA. Coronavirus screen: Proceed ls4 with normal triage. Patient denies a cough. Patient denies shortness of breath or difficulty breathing. Patient denies measured and/or subjective temperature greater than 100.4F prior to today's visit. Patient denies travel on a cruise ship or to a country the [facility] currently lists as an affected area. Patient denies contact with known and/or suspected case of COVID-19. Ebola Screen: No symptoms or risks identified at this time. Initial Sepsis Screen: Does the patient meet any 2 criteria? No. Patient's initial sepsis screen is negative. Does the patient have a suspected source of infection? No. Patient's initial sepsis screen is negative. Risk Assessment: Do you want to hurt yourself or someone else? Patient reports no desire to harm self or others. Onset of symptoms is unknown. 17:39 Method Of Arrival: Ambulatory ls4 17:39 Acuity: BECKI 3 ls4 Triage Assessment: 17:40 General: Appears in no apparent distress. Behavior is calm, cooperative. Pain: ls4 Complains of pain in right labia majora and right labia minora Pain currently is 4 out of 10 on a pain scale. 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 - Social history:: Smoking status: Patient denies any tobacco usage or history of. Screenin:41 Abuse screen: Denies threats or abuse. Denies injuries from another. Nutritional ls4 screening: No deficits noted. Tuberculosis screening: No symptoms or risk factors identified. Fall Risk None identified. Assessment: 18:30 Reassessment: No changes from previously documented assessment. Patient and/or family ls4 updated on plan of care and expected duration. Pain level reassessed. Patient is alert, oriented x 3, equal unlabored respirations, skin warm/dry/pink. 18:30 General: Appears in no apparent distress. uncomfortable, Behavior is anxious, fussy. ls4 Neuro: No deficits noted. Cardiovascular: No deficits noted. Respiratory: No deficits noted. GI: No deficits noted. No signs and/or symptoms were reported involving the gastrointestinal system. : No deficits noted. No signs and/or symptoms were reported regarding the genitourinary system. EENT: No deficits noted. No signs and/or symptoms were reported regarding the EENT system. Derm: Abscess located on right labia minora and right labia majora is golf ball sized, has purulent drainage, OLIVER LYNN FOR I AND D PROCEDURE. PT CONSENTED TO PROCEDURE. DRESSING GAUZE AND PAD APPLIED AFTER PROCEDURE. Musculoskeletal: No deficits noted. No signs and/or symptoms reported regarding the musculoskeletal system. Vital Signs: 17:30 BP 121 / 90; Pulse 133; Resp 14; Temp 98.1(O); Pulse Ox 100% on R/A; Weight 63.5 kg; ls4 Height 5 ft. 2 in. (157.48 cm); Pain 4/10; 18:22 BP 122 / 94; Pulse 100; Resp 17 S; Pulse Ox 100% on R/A; ca1 17:30 Body Mass Index 25.61 (63.50 kg, 157.48 cm) ls4 ED Course: 17:06 Patient arrived in ED. as 17:08 Roxie Brice FNP-C is [facility]. kb 17:08 Lester Cobb MD is Attending Physician. kb 17:23 Sandra Mccray, KRISTOPHER is Primary Nurse. ls4 17:30 Arm band placed on right wrist. ls4 17:40 Triage completed. ls4 17:41 Patient has correct armband on for positive identification. Bed in low position. Call ls4 light in reach. Side rails up X 1. Pulse ox on. NIBP on. Warm blanket given. Verbal reassurance given. 17:41 Assist provider with I \T\ D: Set up I\T\D tray. Patient did not have IV access during this ls 4 emergency room visit. Administered Medications: 17:52 Drug: Bactrim (160 mg-800 mg (DS) 1 tablet Route: PO; ca1 18:10 Follow up: Response: No adverse reaction ls4 17:53 Drug: KeFLEX 500 mg Route: PO; ca1 18:10 Follow up: Response: No adverse reaction ls4 Outcome: 18:28 Discharge ordered by . gretchen 18:49 Patient left the ED. ls4 18:49 Discharged to home ambulatory. ls4 18:49 Condition: stable 18:49 Discharge instructions given to patient, Instructed on discharge instructions, follow up and referral plans. wound care, Demonstrated understanding of instructions, follow-up care, medications, wound care, Prescriptions given X 2. Signatures: Roxie Brice, DAY TREATMENT CLINICIAN/ART THERAPIST-C DAY TREATMENT CLINICIAN/ART THERAPIST-Teresa Duque Lisa, RN RN ls4 Astrid Morales RN RN ca1
[2019-08-13 19:02] VITALS: TEMP 98.1; O2SAT 100
[2019-08-13 19:07] VITALS: BP 122/94
== END 2019-08-13 18:49 | disposition home or self-care (01) ==
LOC: ER 17:04
PROC: 0U9MXZZ Drainage of Vulva, External Approach (ICD-10-PCS; principal; 2019-08-13)
DX: N76.4 Abscess of vulva (principal); I95.9 Hypotension, unspecified; Z88.1 Allergy status to other antibiotic agents
CPT/HCPCS: 99284

== ENCOUNTER 2019-09-10 04:52 | Emergency (ER) | payer SELFPAY ==
[2019-09-10] MEDS ORDERED: KETOROLAC 30 MG/ML INJ ONE (05:15)
--- NOTE | 2019-09-10 05:34 | EDPHYS ---
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 - Social history:: Smoking status: Patient reports the use of cigarette tobacco products. Vital Signs: 04:58 BP 140 / 70; Pulse 89; Resp 18; Temp 97.2; Pulse Ox 100% on R/A; Pain 10/10; sg 05:46 BP 135 / 70; Pulse 80; Resp 18; Temp 98; Pulse Ox 100% on R/A; mg2 MDM: 04:59 Patient medically screened. tw4 09/09 05:00 Order name: Elbow Left 2 View XRAY tw4 09/09 05:46 Order name: Sling; Complete Time: 05:46 mg2 Administered Medications: 05:16 Drug: TORadol 60 mg Route: IM; Site: right gluteus; mg2 05:45 Follow up: Response: No adverse reaction; Marked relief of symptoms mg2 Disposition: 09/10/19 05:34 Discharged to Home. Impression: Dislocation and sprain of joints and ligaments of elbow. - Condition is Stable. - Discharge Instructions: Elbow Dislocation. - Prescriptions for Ibuprofen 800 mg Oral Tablet - take 1 tablet by ORAL route every 8 hours As needed take with food; 30 tablet. Tramadol 50 mg Oral Tablet - take 1 tablet by ORAL route every 8 hours as needed; 12 tablet. - Medication Reconciliation Form, Thank You Letter, Antibiotic Education, Prescription Opioid Use form. - Follow up: Private Physician; When: Upon discharge from the Emergency Department; Reason: Recheck today's complaints, Continuance of care, Re-evaluation by your physician. Follow up: Owen De La Torre MD; When: Upon discharge from the Emergency Department; Reason: Recheck today's complaints, Continuance of care, Re-evaluation by your physician. - Problem is new. - Symptoms have improved. Signatures: Dispatcher [employer] EDMS Owen Contreras, RN RN sg Adriel Frias MD MD tw4 Guru Malone, RN RN mg2 Corrections: (The following items were deleted from the chart) 05:46 05:34 09/10/2019 05:34 Discharged to Home. Impression: Dislocation and sprain of joints mg2 and ligaments of elbow. Condition is Stable. Forms are Medication Reconciliation Form, Thank You Letter, Antibiotic Education, Prescription Opioid Use. Follow up: Private Physician; When: Upon discharge from the Emergency Department; Reason: Recheck today's complaints, Continuance of care, Re-evaluation by your physician. Follow up: Owen De La Torre; When: Upon discharge from the Emergency Department; Reason: Recheck today's complaints, Continuance of care, Re-evaluation by your physician. Problem is new. Symptoms have improved. tw4
--- NOTE | 2019-09-10 05:34 | ER ---
Nurse's Notes 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 Coronavirus screen: Proceed with normal triage. Ebola Screen: Patient negative for fever greater than or equal to 101.5 degrees Fahrenheit, and additional compatible Ebola Virus Disease symptoms Patient denies exposure to infectious person. Patient denies travel to an Ebola-affected area in the 21 days before illness onset. No symptoms or risks identified at this time. Initial Sepsis Screen: Does the patient meet any 2 criteria? No. Patient's initial sepsis screen is negative. Does the patient have a suspected source of infection? No. Patient's initial sepsis screen is negative. Risk Assessment: Do you want to hurt yourself or someone else? Patient reports no desire to harm self or others. Onset of symptoms was September 10, 2019. Care prior to arrival: None. Transition of care: patient was not received from another setting of care. 04:58 Method Of Arrival: Ambulatory 04:58 Acuity: BECKI 4 sg Triage Assessment: 05:18 Injury Description: swelling. 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 - Social history:: Smoking status: Patient reports the use of cigarette tobacco products. Screenin:17 Abuse screen: Denies threats or abuse. Denies injuries from another. Nutritional mg2 screening: No deficits noted. Tuberculosis screening: No symptoms or risk factors identified. Fall Risk None identified. Assessment: 05:16 General: Appears in no apparent distress. uncomfortable, Behavior is calm, cooperative. mg2 Pain: Complains of pain in left elbow Pain currently is 8 out of 10 on a pain scale. Quality of pain is described as aching, Pain began suddenly, 1 day ago. Is intermittent. Neuro: Level of Consciousness is awake, alert, obeys commands, Oriented to person, place, time, situation. Cardiovascular: Capillary refill < 3 seconds Patient's skin is warm and dry. Respiratory: Airway is patent Respiratory effort is even, unlabored, Respiratory pattern is regular, symmetrical. GI: No deficits noted. : No deficits noted. EENT: No signs and/or symptoms were reported regarding the EENT system. Derm: Skin is intact, is healthy with good turgor, Skin is pink, warm \T\ dry. normal. Musculoskeletal: Circulation, motion, and sensation intact. Capillary refill < 3 seconds, Swelling present in left elbow. Vital Signs: 04:58 BP 140 / 70; Pulse 89; Resp 18; Temp 97.2; Pulse Ox 100% on R/A; Pain 10/10; sg 05:46 BP 135 / 70; Pulse 80; Resp 18; Temp 98; Pulse Ox 100% on R/A; mg2 ED Course: 04:53 Patient arrived in ED. ds1 04:58 Guru Malone, KRISTOPHER is Primary Nurse. mg2 04:59 Adriel Frias MD is Attending Physician. tw4 04:59 Triage completed. sg 05:00 Arm band placed on. sg 05:18 Patient has correct armband on for positive identification. Door closed. Warm blanket mg2 given. 05:18 Patient did not have IV access during this emergency room visit. mg2 05:33 Owen De La Torre MD is Referral Physician. tw4 05:46 No provider procedures requiring assistance completed. Sling applied to left arm. mg2 05:48 Elbow Left 2 View XRAY In Process Unspecified. EDMS Administered Medications: 05:16 Drug: TORadol 60 mg Route: IM; Site: right gluteus; mg2 05:45 Follow up: Response: No adverse reaction; Marked relief of symptoms mg2 Outcome: 05:34 Discharge ordered by . tw4 05:46 Discharged to home ambulatory. mg2 05:46 Condition: stable 05:46 Discharge instructions given to patient, Instructed on discharge instructions, follow up and referral plans. medication usage, Demonstrated understanding of instructions, follow-up care, medications, Prescriptions given X 2. 05:46 Patient left the ED. mg2 Signatures: Dispatcher [employer] EDMS Owen Contreras, RN RN sg Amira Prieto ds1 Adriel Frias MD MD tw4 Guru Malone RN RN mg2
[2019-09-10 05:52] VITALS: O2SAT 100
[2019-09-10 05:54] VITALS: BP 135/70; TEMP 98
--- NOTE | 2019-09-10 07:44 | RAD REPORT ---
EXAM DESCRIPTION: RAD - Elbow Left 2 View - 09/10/2019 5:47 am CLINICAL HISTORY: Left elbow pain following lifting injury COMPARISON: None. FINDINGS: No fracture is identified and no elevated posterior fat pad. There is no dislocation or periosteal reaction noted. No foreign body seen. No soft tissue abnormalit y is identifiable. IMPRESSION: Negative left elbow examination.
== END 2019-09-10 05:46 | disposition home or self-care (01) ==
LOC: ER 04:52
DX: S53.105A Unspecified dislocation of left ulnohumeral joint, initial encounter (principal); S53.402A Unspecified sprain of left elbow, initial encounter; X50.0XXA Overexertion from strenuous movement or load, initial encounter; Y93.9 Activity, unspecified; F17.210 Nicotine dependence, cigarettes, uncomplicated; Z88.1 Allergy status to other antibiotic agents
CPT/HCPCS: 96372; 99284